=== PATIENT | male | born 1985 | race African-American/Black ===

== ENCOUNTER 2018-10-08 08:43 | Emergency (ER) | payer MEDICAID, SELFPAY ==
[~2018-10-08] VITALS: Ht 175.3 cm; Wt 81.8 kg
[2018-10-08 08:46] VITALS: BP 128/94
--- NOTE | 2018-10-08 09:22 | NUR ---
PT TO XRAY
[2018-10-08] MEDS ORDERED: MAALOX/HYOSCYAMINE/LIDOCAINE 45 ML BTL ONE (09:52)
[2018-10-08] MEDS ORDERED: MAALOX/HYOSCYAMINE/LIDOCAINE 45 ML BTL PO ONE (10:00)
[2018-10-08] MEDS ORDERED: PLEASE ENTER ALLERGIES MC SCH (10:30)
--- NOTE | 2018-10-08 10:38 | NUR ---
PT WAS CLEARED FOR DISCHARGE, LEFT PRIOR TO RECEIVING D/C INSTRUCTIONS.
== END 2018-10-08 10:40 | disposition home or self-care (01) ==
LOC: ED 09:36
DX: K20.9 Esophagitis, unspecified (principal); F17.200 Nicotine dependence, unspecified, uncomplicated; G40.909 Epilepsy, unspecified, not intractable, without status epilepticus
CPT/HCPCS: 74220; 99283

== ENCOUNTER 2018-11-09 09:37 | Emergency (ER) | payer MEDICAID ==
[~2018-11-09] VITALS: Ht 170.2 cm; Wt 81.8 kg
--- NOTE | 2018-11-09 09:51 | NUR ---
report charly carter rn. vss. pt reports 7/10 bilateral lower back pain. orders received.
[2018-11-09] MEDS ORDERED: KETOROLAC 30 MG/1 ML ONE (09:54)
[2018-11-09] MEDS ORDERED: KETOROLAC 30 MG/1 ML IVPush ONE (10:00)
[2018-11-09] MEDS ORDERED: SODIUM CHLORIDE FLUSH 10ML SYR IVF ONE (10:00)
--- NOTE | 2018-11-09 10:06 | NUR ---
iv established. pt medicated per jun. vss. no needs expressed. pt currently trying to provide ua sample.
[2018-11-09 10:32] LABS: BASOPHILS # (AUTO) 0.01 x10^3/uL (0-0.1); BASOPHILS % (AUTO) 0 % (0-1); EOSINOPHILS # (AUTO) 0.06 x10^3/uL (0-0.4); EOSINOPHILS % (AUTO) 1 % (1-7); LYMPHOCYTES # (AUTO) 1.26 x10^3/uL (1-3.4); LYMPHOCYTES % (AUTO) 12 % (22-44); MD NO; MEAN CORPUSCULAR HEMOGLOBIN 31.8 pg (27.5-34.5); MEAN CORPUSCULAR HGB CONC 33.3 g/dL (33.2-36.2); MEAN CORPUSCULAR VOLUME 95.6 fL (81-97); MEAN PLATELET VOLUME 8.4 fL (7.4-10.4); MONOCYTES # (AUTO) 1.01 x10^3/uL (0.2-0.8); MONOCYTES % (AUTO) 10 % (2-9); NEUTROPHILS # (AUTO) 7.88 x10^3/uL (1.8-6.8); NEUTROPHILS % (AUTO) 77 % (42-75); PLATELET COUNT 285 x10^3/uL (130-400); RED BLOOD COUNT 5.67 x10^6/uL (4.38-5.82); RED CELL DISTRIBUTION WIDTH 13.6 % (9.4-14.8)
[2018-11-09 10:33] VITALS: BP 135/95
--- NOTE | 2018-11-09 10:33 | NUR ---
pt resting in room with lights dimmed. vss. pt reports lower back pain decrease to 5/10 after medication administration. ua collected and sent. awaiting results.
[2018-11-09 10:40] LABS: ALANINE AMINOTRANSFERASE 35 U/L (12-78); ALBUMIN 4.4 g/dL (3.4-5.0); ANION GAP 7 mmol/L (5-15); CALCIUM 9.4 mg/dL (8.5-10.1); CHLORIDE 107 mmol/L (98-107); CREATININE 2.05 mg/dL (0.7-1.3)
[2018-11-09 10:43] LABS: ALKALINE PHOSPHATASE 63 U/L (45-117); BILIRUBIN,TOTAL 0.5 mg/dL (0.2-1.0); TOTAL PROTEIN 8.1 g/dL (6.4-8.2)
[2018-11-09 10:48] LABS: MICROSCOPIC AUTO
[2018-11-09 10:50] LABS: CULTURE INDICATED? NO
--- NOTE | 2018-11-09 10:51 | NUR ---
all results back at this time. chart up for recheck.
== END 2018-11-09 11:19 | disposition home or self-care (01) ==
LOC: ED 11:15
DX: M54.5 Low back pain (principal)
CPT/HCPCS: 36415; 74176; 80053; 81001; 83690; 85025; 96374; 99284; J1885

== ENCOUNTER 2019-04-10 08:27 | Emergency (ER) | payer MEDICAID ==
[~2019-04-10] VITALS: Ht 172.7 cm; Wt 78.0 kg
[2019-04-10 08:50] VITALS: BP 160/108
== END 2019-04-10 09:07 | disposition home or self-care (01) ==
LOC: ED 08:57
DX: B02.9 Zoster without complications (principal); F17.200 Nicotine dependence, unspecified, uncomplicated; R05 Cough
CPT/HCPCS: 99283

== ENCOUNTER 2019-04-27 05:22 | Emergency (ER) | payer MEDICAID ==
[~2019-04-27] VITALS: Ht 172.7 cm; Wt 77.2 kg
[2019-04-27 05:24] VITALS: BP 178/110
[2019-04-27] MEDS ORDERED: AZITHROMYCIN 500 MG TABLET ONE (05:45)
[2019-04-27] MEDS ORDERED: LIDOCAINE-MPF 1%, 2ML ONE (05:45)
[2019-04-27] MEDS ORDERED: CEFTRIAXONE 250 MG ONE (05:45)
[2019-04-27] MEDS ORDERED: AZITHROMYCIN 500 MG TABLET PO ONE (06:00)
[2019-04-27] MEDS ORDERED: CEFTRIAXONE 250 MG IM ONE (06:00)
== END 2019-04-27 06:05 | disposition home or self-care (01) ==
LOC: ED 05:30
DX: A56.01 Chlamydial cystitis and urethritis (principal); A54.01 Gonococcal cystitis and urethritis, unspecified; F17.200 Nicotine dependence, unspecified, uncomplicated; G40.909 Epilepsy, unspecified, not intractable, without status epilepticus
CPT/HCPCS: 96372; 99283; J0696; 87491; 87591

== ENCOUNTER 2019-12-24 03:53 | Inpatient (IN) | payer MEDICAID ==
[~2019-12-24] VITALS: Ht 172.7 cm; Wt 84.6 kg
--- NOTE | 2019-12-24 04:02 | NUR ---
Patient BIB ambulance c/o sore throat, cough, fever/chills x2 days. Patient has taken Tylenol PM with no relief. Last dose was prior to midnight. Patient is in NAD. Respirations even and unlabored.
[2019-12-24 04:30] LABS: BASOPHILS # (AUTO) 0.01 x10^3/uL (0-0.1); BASOPHILS % (AUTO) 0 % (0-1); EOSINOPHILS # (AUTO) 0.01 x10^3/uL (0-0.4); EOSINOPHILS % (AUTO) 0 % (1-7); LYMPHOCYTES # (AUTO) 0.79 x10^3/uL (1-3.4); LYMPHOCYTES % (AUTO) 6 % (22-44); MD NO; MEAN CORPUSCULAR HEMOGLOBIN 31.9 pg (27.5-34.5); MEAN CORPUSCULAR VOLUME 96.6 fL (81-97); MEAN PLATELET VOLUME 8.8 fL (7.4-10.4); MONOCYTES # (AUTO) 1.01 x10^3/uL (0.2-0.8); MONOCYTES % (AUTO) 7 % (2-9); NEUTROPHILS # (AUTO) 11.99 x10^3/uL (1.8-6.8); NEUTROPHILS % (AUTO) 87 % (42-75); PLATELET COUNT 219 x10^3/uL (130-400); RED BLOOD COUNT 4.96 x10^6/uL (4.38-5.82); RED CELL DISTRIBUTION WIDTH 13.3 % (9.4-14.8)
[2019-12-24] MEDS ORDERED: SODIUM CHLORIDE 0.9% 1,000ML IVBOLUS ONE ×2 (04:30→06:00)
[2019-12-24] MEDS ORDERED: LORazepam 2 MG/ML, 1ML IVPush ONE (04:30)
[2019-12-24] MEDS ORDERED: LORazepam 2 MG/ML, 1ML ONE (04:35)
[2019-12-24 04:38] LABS: ANION GAP 7 mmol/L (5-15); CALCIUM 8.3 mg/dL (8.5-10.1); CHLORIDE 104 mmol/L (98-107); CREATININE 1.39 mg/dL (0.7-1.3)
[2019-12-24] MEDS ORDERED: ACETAMINOPHEN 500 MG TABLET ONE (05:25)
[2019-12-24] MEDS ORDERED: IBUPROFEN 600 MG TABLET ONE (05:25)
[2019-12-24] MEDS ORDERED: IBUPROFEN 600 MG TABLET PO ONE (05:30)
[2019-12-24] MEDS ORDERED: ACETAMINOPHEN 500 MG TABLET PO ONE (05:30)
[2019-12-24] MEDS ORDERED: CEFTRIAXONE PMX 1GM/50ML 50 ML ONE (06:21)
[2019-12-24] MEDS ORDERED: AZITHROMYCIN 500 MG in SODIUM CHLORIDE 0.9% 250 ML IVPB ONE (06:30)
[2019-12-24] MEDS ORDERED: CEFTRIAXONE PMX 1GM/50ML 50 ML IVPB ONE (06:30)
--- NOTE | 2019-12-24 06:44 | NUR ---
Report to MURRAY Ruiz. Patient care transferred.
[2019-12-24 08:51] VITALS: BP 122/86
[2019-12-24] MEDS ORDERED: SODIUM CHLORIDE 0.9% 1,000 ML IV SCH (09:23)
[2019-12-24] MEDS ORDERED: LABETALOL 5MG/ML, 20ML IVPush PRN (09:30)
[2019-12-24] MEDS ORDERED: SODIUM CHLORIDE 0.9% 500 ML IV ONE (09:30)
[2019-12-24] MEDS ORDERED: ONDANSETRON 2MG/ML, 2ML IVPush PRN (09:30)
[2019-12-24] MEDS ORDERED: hydrALAzine 20 MG/ML, 1ML IVPush PRN (09:30)
[2019-12-24] MEDS ORDERED: PROMETHAZINE 25 MG/ML, 1ML IM PRN (09:30)
[2019-12-24] MEDS: HEPARIN 5,000 UNITS/ML, 1ML SQ SCH ×2 (09:30→16:47)
[2019-12-24 12:06] LABS: TROPONIN I 0.049 ng/mL (0.000-0.045)
[2019-12-24] MEDS ORDERED: LORazepam 2 MG/ML, 1ML IVPush PRN (13:00)
[2019-12-24 13:02] VITALS: BP 131/91
[2019-12-24] MEDS: OXYcodone/APAP 5/325MG TABLET PO PRN ×2 (13:08→20:11)
[2019-12-24] MEDS ORDERED: LORazepam 1MG TABLET PO PRN ×3 (13:30)
[2019-12-24] MEDS ORDERED: LORazepam 2 MG/ML, 1ML IV PRN ×5 (13:30)
[2019-12-24] MEDS: LORazepam 1MG TABLET PO PRN (13:57)
[2019-12-24] MEDS ORDERED: ASPIRIN 81 MG TABLET CHEW PO ONE (14:30)
[2019-12-24 16:34] LABS: TROPONIN I 0.061 ng/mL (0.000-0.045)
[2019-12-24] MEDS: METOPROLOL TARTRATE 25 MG TAB PO SCH (16:53)
[2019-12-24 18:52] VITALS: BP 127/90
[2019-12-24] MEDS ORDERED: MELATONIN 5 MG TABLET PO PRN (19:30)
[2019-12-24] MEDS: ATORVASTATIN 40 MG TABLET PO SCH (20:11)
[2019-12-24] MEDS: THIAMINE 100MG TABLET PO SCH (20:11)
[2019-12-24] MEDS: ACETAMINOPHEN 325 MG TABLET PO PRN (20:27)
[2019-12-24] MEDS ORDERED: FUROSEMIDE 40 MG/4 ML IV ONE (20:30)
[2019-12-24 20:40] LABS: TROPONIN I 0.118 ng/mL (0.000-0.045)
[2019-12-25 01:00] VITALS: BP 112/81
[2019-12-25] MEDS: HEPARIN 5,000 UNITS/ML, 1ML SQ SCH ×3 (01:24→17:22)
[2019-12-25] MEDS: ACETAMINOPHEN 325 MG TABLET PO PRN (02:15)
[2019-12-25] MEDS: LORazepam 1MG TABLET PO PRN (02:59)
[2019-12-25 05:35] LABS: MEAN CORPUSCULAR HEMOGLOBIN 32.1 pg (27.5-34.5); MEAN CORPUSCULAR VOLUME 97.1 fL (81-97); MEAN PLATELET VOLUME 9.3 fL (7.4-10.4); PLATELET COUNT 221 x10^3/uL (130-400)
[2019-12-25 05:44] LABS: CALCIUM 8.6 mg/dL (8.5-10.1); CHLORIDE 107 mmol/L (98-107)
[2019-12-25 05:49] LABS: ALANINE AMINOTRANSFERASE 49 U/L (12-78); ALBUMIN 2.6 g/dL (3.4-5.0); ALKALINE PHOSPHATASE 92 U/L (45-117); ANION GAP 7 mmol/L (5-15); BILIRUBIN,TOTAL 0.5 mg/dL (0.2-1.0); CREATININE 1.08 mg/dL (0.7-1.3); TOTAL PROTEIN 6.8 g/dL (6.4-8.2)
[2019-12-25 06:02] LABS: MD YES
[2019-12-25 06:04] LABS: BAND#(MANUAL) 0.74 x10^3/uL; BANDS%(MANUAL) 6 % (0-7); LYMPH#(MANUAL) 2.11 x10^3/uL (1-3.4); LYMPHS% (MANUAL) 17 % (22-44); MONOS#(MANUAL) 1.86 x10^3/uL (0.3-2.7); MONOS% (MANUAL) 15 % (2-9); SEG#(MANUAL) 7.69 x10^3/uL (1.8-6.8); SEGS% (MANUAL) 62 % (42-75)
[2019-12-25 06:05] LABS: <PLATELET ESTIMATE> ADEQUATE; <PLT MORPHOLOGY> NORMAL PLT MORPH; <RBC MORPHOLOGY> NORMAL
[2019-12-25 06:25] VITALS: BP 118/80
[2019-12-25] MEDS: METOPROLOL TARTRATE 25 MG TAB PO SCH (06:27)
[2019-12-25] MEDS: CEFTRIAXONE PMX 1GM/50ML 50 ML IV SCH (07:45)
[2019-12-25] MEDS: AZITHROMYCIN 500 MG in SODIUM CHLORIDE 0.9% 250 ML IV SCH (08:41)
[2019-12-25] MEDS: FOLIC ACID 1 MG TABLET PO SCH (08:42)
[2019-12-25] MEDS: MULTIVITAMIN 1 TABLET PO SCH (08:42)
[2019-12-25] MEDS: ASPIRIN 81 MG TABLET CHEW PO SCH (08:42)
[2019-12-25] MEDS: THIAMINE 100MG TABLET PO SCH ×2 (08:42→21:21)
[2019-12-25] MEDS ORDERED: CHLORDIAZEPOXIDE 25 MG CAPSULE PO PRN (09:00)
[2019-12-25 12:03] VITALS: BP 116/79
[2019-12-25 15:37] LABS: CHOLESTEROL, TOTAL 128 mg/dL (140-239); TRIGLYCERIDES 126 mg/dL (50-200); VLDL CHOLESTEROL 25 mg/dL (0-25)
[2019-12-25 15:40] LABS: CHOL/HDL RATIO 3.2; HDL CHOL % 31 % (26-37); HDL CHOLESTEROL (DIRECT) 40 mg/dL (40-60); LDL CHOLESTEROL,CALCULATED 63 mg/dL (54-169); LDL/HDL RATIO 1.6 (0.5-3.0); TROPONIN I 0.181 ng/mL (0.000-0.045)
[2019-12-25 16:12] LABS: INTERNATIONAL NORMALIZED RATIO 0.98 (0.93-1.1); PROTHROMBIN TIME 10.1 Seconds (9.6-11.5)
[2019-12-25 17:20] VITALS: BP 138/89
[2019-12-25] MEDS: FUROSEMIDE 20 MG/2 ML IV SCH (17:22)
[2019-12-25] MEDS: CARVEDILOL 3.125 MG TABLET PO SCH (17:22)
[2019-12-25 18:16] LABS: AMPHETAMINE SCREEN, URINE Negative (Negative); CANNABINOID SCREEN, URINE Negative (Negative); COCAINE SCREEN, URINE Negative (Negative); METHADONE SCREEN, URINE Negative (Negative); OPIATE SCREEN, URINE Negative (Negative)
[2019-12-25 18:23] LABS: BARBITURATE SCREEN, URINE Negative (Negative); BENZODIAZEPINE SCREEN, URINE Negative (Negative)
[2019-12-25 19:07] VITALS: BP 125/85
[2019-12-25] MEDS ORDERED: ATORVASTATIN 40 MG TABLET PO SCH (21:00)
[2019-12-25] MEDS: ATORVASTATIN 40 MG TABLET PO SCH (21:21)
[2019-12-26 00:44] VITALS: BP 132/95
[2019-12-26] MEDS: HEPARIN 5,000 UNITS/ML, 1ML SQ SCH ×2 (01:09→09:30)
[2019-12-26] MEDS: LORazepam 0.5MG TABLET PO PRN ×2 (01:49→04:05)
[2019-12-26] MEDS: OXYcodone/APAP 5/325MG TABLET PO PRN (04:05)
[2019-12-26] MEDS: CARVEDILOL 3.125 MG TABLET PO SCH (04:06)
[2019-12-26 05:36] LABS: MEAN CORPUSCULAR HGB CONC 33.1 g/dL (33.2-36.2); MEAN CORPUSCULAR VOLUME 96.6 fL (81-97); MEAN PLATELET VOLUME 8.9 fL (7.4-10.4); PLATELET COUNT 263 x10^3/uL (130-400); RED BLOOD COUNT 4.42 x10^6/uL (4.38-5.82); RED CELL DISTRIBUTION WIDTH 12.5 % (9.4-14.8)
[2019-12-26 05:57] LABS: ALBUMIN 2.6 g/dL (3.4-5.0); ANION GAP 6 mmol/L (5-15); CALCIUM 8.8 mg/dL (8.5-10.1); CHLORIDE 106 mmol/L (98-107)
[2019-12-26 06:00] LABS: ALANINE AMINOTRANSFERASE 58 U/L (12-78); ALKALINE PHOSPHATASE 66 U/L (45-117); BILIRUBIN,TOTAL 0.5 mg/dL (0.2-1.0); CREATININE 1.06 mg/dL (0.7-1.3); TOTAL PROTEIN 6.6 g/dL (6.4-8.2)
[2019-12-26 06:35] LABS: BASOPHILS # (AUTO) 0.03 x10^3/uL (0-0.1); BASOPHILS % (AUTO) 0 % (0-1); EOSINOPHILS # (AUTO) 0.05 x10^3/uL (0-0.4); EOSINOPHILS % (AUTO) 0 % (1-7); LYMPHOCYTES # (AUTO) 2.43 x10^3/uL (1-3.4); LYMPHOCYTES % (AUTO) 20 % (22-44); MD SCAN; MONOCYTES # (AUTO) 2.14 x10^3/uL (0.2-0.8); MONOCYTES % (AUTO) 18 % (2-9); NEUTROPHILS # (AUTO) 7.34 x10^3/uL (1.8-6.8); NEUTROPHILS % (AUTO) 61 % (42-75)
[2019-12-26 07:19] VITALS: BP 129/89
[2019-12-26] MEDS: FUROSEMIDE 20 MG/2 ML IV SCH (07:30)
[2019-12-26] MEDS ORDERED: REGADENOSON 0.4 MG/5 ML SYRINGE ONE (08:10)
[2019-12-26] MEDS: CEFTRIAXONE PMX 1GM/50ML 50 ML IV SCH (08:11)
[2019-12-26] MEDS: THIAMINE 100MG TABLET PO SCH (09:00)
[2019-12-26] MEDS: FOLIC ACID 1 MG TABLET PO SCH (09:00)
[2019-12-26] MEDS: ASPIRIN 81 MG TABLET CHEW PO SCH (09:00)
[2019-12-26] MEDS: MULTIVITAMIN 1 TABLET PO SCH (09:00)
[2019-12-26] MEDS ORDERED: LISINOPRIL 5 MG TABLET PO SCH (09:00)
[2019-12-26] MEDS: AZITHROMYCIN 500 MG in SODIUM CHLORIDE 0.9% 250 ML IV SCH (09:16)
[2019-12-26] MEDS ORDERED: CARVEDILOL 6.25 MG TABLET PO SCH (18:00)
== END 2019-12-26 13:07 | disposition left against medical advice (07) | DRG 720 ==
LOC: ED 05:43 → EDIP 06:32 → 4EST 08:44
PROVIDERS: ADMIT Internal Medicine Infectious Disease; ATTEND Internal Medicine Infectious Disease
DX: A41.9 Sepsis, unspecified organism (principal); F17.200 Nicotine dependence, unspecified, uncomplicated; G40.909 Epilepsy, unspecified, not intractable, without status epilepticus; J18.9 Pneumonia, unspecified organism; R00.0 Tachycardia, unspecified; F41.9 Anxiety disorder, unspecified; F43.10 Post-traumatic stress disorder, unspecified; N17.0 Acute kidney failure with tubular necrosis; E87.1 Hypo-osmolality and hyponatremia; Z20.828 Contact with and (suspected) exposure to other viral communicable diseases; I42.9 Cardiomyopathy, unspecified; I50.21 Acute systolic (congestive) heart failure; I11.0 Hypertensive heart disease with heart failure; I25.5 Ischemic cardiomyopathy; Z53.29 Procedure and treatment not carried out because of patient's decision for other reasons; Z80.1 Family history of malignant neoplasm of trachea, bronchus and lung
CPT/HCPCS: 36415; 71045; 78452; 80048; 80053; 80061; 80307; 82040; 83605; 83880; 84145; 84484; 85025; 85610; 85730; 87040; 87635; 93005; 93017; 93306; 96374; 96375; G0378; J0456; J0696; J1644; J1940; J2405; J2785; A9502; J2060; J7030; J7050

== ENCOUNTER 2020-02-25 07:27 | Emergency (ER) | payer MEDICAID ==
[~2020-02-25] VITALS: Ht 172.7 cm; Wt 81.6 kg
--- NOTE | 2020-02-25 07:45 | NUR ---
PT WEARING HOSPITAL GOWN, HAS IV FROM EMS. PT PLACED ON VITALS MONITORS. WILL CONTINUE TO MONITOR. CALL LIGHT WITHIN REACH.
[2020-02-25] MEDS ORDERED: MORPHINE SULFATE 4 MG/ML, 1ML ONE ×2 (07:52→10:06)
[2020-02-25] MEDS ORDERED: ONDANSETRON 2MG/ML, 2ML ONE (07:52)
[2020-02-25] MEDS: MORPHINE SULFATE 4 MG/ML, 1ML IVPush PRN ×2 (07:57→10:09)
[2020-02-25] MEDS ORDERED: ONDANSETRON 2MG/ML, 2ML IVPush ONE (08:00)
[2020-02-25] MEDS ORDERED: SODIUM CHLORIDE 0.9% 1,000ML IVBOLUS ONE (08:00)
--- NOTE | 2020-02-25 08:00 | NUR ---
ORDERED IV FLUIDS STARTED, PT MEDICATED FOR PAIN. PT INSTRUCTED ON URINE SPECIMEN COLLECTION.
[2020-02-25 08:06] LABS: BASOPHILS % (AUTO) 1 % (0-1); EOSINOPHILS % (AUTO) 1 % (1-7); LYMPHOCYTES % (AUTO) 33 % (22-44); MEAN CORPUSCULAR HGB CONC 32.9 g/dL (33.2-36.2); MEAN PLATELET VOLUME 7.6 fL (7.4-10.4); MONOCYTES % (AUTO) 7 % (2-9); NEUTROPHILS % (AUTO) 57 % (42-75); PLATELET COUNT 308 x10^3/uL (130-400); RED BLOOD COUNT 4.49 x10^6/uL (4.38-5.82); RED CELL DISTRIBUTION WIDTH 14.4 % (9.4-14.8)
[2020-02-25 08:17] LABS: MD NO
[2020-02-25 08:20] LABS: ALANINE AMINOTRANSFERASE 137 U/L (12-78); ALBUMIN 3.2 g/dL (3.4-5.0); ANION GAP 9 mmol/L (5-15); CALCIUM 8.6 mg/dL (8.5-10.1); CHLORIDE 111 mmol/L (98-107); CREATININE 0.85 mg/dL (0.7-1.3)
[2020-02-25 08:22] LABS: ALKALINE PHOSPHATASE 141 U/L (45-117); BILIRUBIN,TOTAL 0.5 mg/dL (0.2-1.0); TOTAL PROTEIN 6.9 g/dL (6.4-8.2)
--- NOTE | 2020-02-25 08:25 | NUR ---
PT ABLE TO PROVIDE URINE SAMPLE. URINE WALKED TO LAB. PT DESATING TO 77% ON RA AFTER PAIN DATE PITTER. PT PLACED ON 3L O2 PER N/C. WILL CONTINUE TO MONITOR.
[2020-02-25 08:34] LABS: MICROSCOPIC AUTO
[2020-02-25] MEDS ORDERED: OMNIPAQUE 350 MG/ML, 100ML BOTTLE ONE (09:14)
--- NOTE | 2020-02-25 10:10 | NUR ---
PT MEDICATED FOR RETURNING ABD PAIN. US AT BEDSIDE AT THIS TIME.
[2020-02-25 12:03] VITALS: BP 139/93
== END 2020-02-25 12:05 | disposition home or self-care (01) ==
LOC: ED 09:22
DX: K43.9 Ventral hernia without obstruction or gangrene (principal); R10.13 Epigastric pain; G40.909 Epilepsy, unspecified, not intractable, without status epilepticus
CPT/HCPCS: 36415; 74177; 76700; 80053; 81001; 83690; 85025; 96361; 96374; 96375; 96376; 99285; J2270; J2405; J7030; Q9967

== ENCOUNTER 2020-02-28 13:20 | Inpatient (IN) | payer MEDICAID ==
[~2020-02-28] VITALS: Ht 165.1 cm; Wt 86.6 kg
[2020-02-28] MEDS ORDERED: SODIUM CHLORIDE FLUSH 10ML SYR IVF ONE (14:00)
[2020-02-28 14:40] LABS: ALBUMIN 3.1 g/dL (3.4-5.0); ANION GAP 5 mmol/L (5-15); CALCIUM 8.6 mg/dL (8.5-10.1); CHLORIDE 107 mmol/L (98-107)
[2020-02-28 14:43] LABS: BASOPHILS % (AUTO) 1 % (0-1); EOSINOPHILS % (AUTO) 1 % (1-7); LYMPHOCYTES % (AUTO) 24 % (22-44); MEAN CORPUSCULAR HEMOGLOBIN 31.8 pg (27.5-34.5); MEAN CORPUSCULAR HGB CONC 32.2 g/dL (33.2-36.2); MEAN PLATELET VOLUME 7.5 fL (7.4-10.4); MONOCYTES % (AUTO) 11 % (2-9); NEUTROPHILS % (AUTO) 63 % (42-75); PLATELET COUNT 328 x10^3/uL (130-400); RED CELL DISTRIBUTION WIDTH 14.4 % (9.4-14.8)
[2020-02-28 14:47] LABS: ALANINE AMINOTRANSFERASE 122 U/L (12-78); ALKALINE PHOSPHATASE 197 U/L (45-117); BILIRUBIN,TOTAL 0.5 mg/dL (0.2-1.0); CREATININE 1.12 mg/dL (0.7-1.3); TOTAL PROTEIN 6.5 g/dL (6.4-8.2); TROPONIN I 0.089 ng/mL (0.000-0.045)
[2020-02-28 14:48] LABS: MD NO
[2020-02-28] MEDS ORDERED: CEFTRIAXONE PMX 1GM/50ML 50 ML ONE (15:15)
[2020-02-28] MEDS ORDERED: ONDANSETRON 2MG/ML, 2ML ONE (15:15)
[2020-02-28] MEDS ORDERED: MORPHINE SULFATE 4 MG/ML, 1ML ONE (15:15)
[2020-02-28] MEDS: MORPHINE SULFATE 4 MG/ML, 1ML IVPush PRN ×2 (15:18→20:45)
[2020-02-28] MEDS ORDERED: ONDANSETRON 2MG/ML, 2ML IVPush ONE (15:30)
[2020-02-28] MEDS ORDERED: AZITHROMYCIN 500 MG in SODIUM CHLORIDE 0.9% 250 ML IVPB ONE (15:30)
[2020-02-28] MEDS ORDERED: CEFTRIAXONE PMX 1GM/50ML 50 ML IVPB ONE (15:30)
[2020-02-28] MEDS ORDERED: SODIUM CHLORIDE FLUSH 10ML SYR IVF PRN (16:00)
[2020-02-28] MEDS ORDERED: ONDANSETRON 2MG/ML, 2ML IVPush PRN (17:00)
[2020-02-28] MEDS ORDERED: ONDANSETRON ODT 4 MG PO PRN (17:00)
[2020-02-28] MEDS ORDERED: ENALAPRILAT 1.25 MG/ML, 2ML IVPush PRN (17:00)
[2020-02-28] MEDS ORDERED: DOCUSATE 100 MG CAPSULE PO PRN (17:00)
--- NOTE | 2020-02-28 17:04 | NUR ---
PT RESTING IN BED. SPO2 DROPS WITH SLEEPING. PLACED ON 2L NC WHILE AT REST. ATB CONTINUE INFUSING. REPORT CALLED TO PRETTY BAKER RN. PT AWAITING TRANSPORT AT THIS TIME, CALL LIGHT IN REACH.
[2020-02-28 17:36] VITALS: BP 126/93
[2020-02-28 17:39] LABS: TROPONIN I 0.094 ng/mL (0.000-0.045)
[2020-02-28] MEDS: ACETAMINOPHEN 325 MG TABLET PO PRN (18:27)
[2020-02-28] MEDS: METOPROLOL TARTRATE 25 MG TAB PO SCH (18:27)
[2020-02-28] MEDS: FUROSEMIDE 20 MG/2 ML IV SCH (18:27)
[2020-02-28 19:19] VITALS: BP 143/87
[2020-02-28] MEDS ORDERED: NITROGLYCERIN 0.4 MG/SPRAY SL PRN (20:30)
[2020-02-28] MEDS ORDERED: MORPHINE SULFATE 4 MG/ML, 1ML IVPush PRN (20:30)
[2020-02-28] MEDS ORDERED: NITROGLYCERIN 0.4 MG BOTTLE (25 TABS) SL PRN (20:30)
[2020-02-28] MEDS: TRAZODONE 50MG TABLET PO PRN (22:58)
[2020-02-29 00:36] VITALS: BP 120/82
[2020-02-29 01:26] LABS: TROPONIN I 0.081 ng/mL (0.000-0.045)
[2020-02-29 05:19] VITALS: BP 113/83
[2020-02-29] MEDS: METOPROLOL TARTRATE 25 MG TAB PO SCH ×2 (05:21→17:02)
[2020-02-29 05:52] LABS: BASOPHILS % (AUTO) 2 % (0-1); EOSINOPHILS % (AUTO) 1 % (1-7); LYMPHOCYTES % (AUTO) 29 % (22-44); MEAN CORPUSCULAR HEMOGLOBIN 31.9 pg (27.5-34.5); MEAN CORPUSCULAR HGB CONC 32.7 g/dL (33.2-36.2); MEAN PLATELET VOLUME 8.1 fL (7.4-10.4); MONOCYTES % (AUTO) 11 % (2-9); NEUTROPHILS % (AUTO) 57 % (42-75); PLATELET COUNT 317 x10^3/uL (130-400); RED BLOOD COUNT 4.36 x10^6/uL (4.38-5.82); RED CELL DISTRIBUTION WIDTH 14.5 % (9.4-14.8)
[2020-02-29 05:59] LABS: ANION GAP 8 mmol/L (5-15); CALCIUM 8.6 mg/dL (8.5-10.1); CHLORIDE 109 mmol/L (98-107)
[2020-02-29 06:10] LABS: MD NO
[2020-02-29] MEDS: LISINOPRIL 5 MG TABLET PO SCH (08:25)
[2020-02-29] MEDS: FUROSEMIDE 20 MG/2 ML IV SCH (08:25)
[2020-02-29] MEDS: ACETAMINOPHEN 325 MG TABLET PO PRN (08:48)
[2020-02-29] MEDS: PANTOPRAZOLE 20MG TABLET PO SCH ×2 (08:48→20:02)
[2020-02-29 08:54] VITALS: BP 112/83
[2020-02-29] MEDS ORDERED: CALCIUM CARBONATE 500 MG TAB.CHEW PO PRN (09:00)
[2020-02-29] MEDS ORDERED: MORPHINE SULFATE 4 MG/ML, 1ML IVPush PRN (09:30)
[2020-02-29] MEDS ORDERED: LACTULOSE 10 GM/15 ML UDC PO SCH (09:30)
[2020-02-29] MEDS: SUCRALFATE 1 GM/10 ML UDC PO SCH ×3 (11:08→20:27)
[2020-02-29 13:14] VITALS: BP 117/82
[2020-02-29] MEDS ORDERED: LACTULOSE 10 GM/15 ML UDC PO PRN (17:00)
[2020-02-29 20:20] VITALS: BP 112/83
[2020-02-29] MEDS: TRAZODONE 50MG TABLET PO PRN (20:27)
[2020-02-29] MEDS ORDERED: GUAIFENESIN 100 MG/5 ML, 5ML UDC PO PRN (23:00)
[2020-02-29] MEDS: OXYcodone IR 5MG TABLET PO PRN (23:27)
[2020-02-29] MEDS: GUAIFENESIN 100 MG/5 ML, 10ML UDC PO PRN (23:27)
[2020-03-01 03:53] VITALS: BP 117/83
[2020-03-01 05:58] LABS: ALBUMIN 2.7 g/dL (3.4-5.0); ANION GAP 5 mmol/L (5-15); CALCIUM 8.7 mg/dL (8.5-10.1); CHLORIDE 109 mmol/L (98-107)
[2020-03-01 06:07] LABS: ALANINE AMINOTRANSFERASE 129 U/L (12-78); ALKALINE PHOSPHATASE 199 U/L (45-117); BILIRUBIN,TOTAL 0.6 mg/dL (0.2-1.0); CREATININE 1.22 mg/dL (0.7-1.3); TOTAL PROTEIN 5.9 g/dL (6.4-8.2)
[2020-03-01 06:45] VITALS: BP 141/100
[2020-03-01] MEDS: METOPROLOL TARTRATE 25 MG TAB PO SCH ×2 (06:46→17:26)
[2020-03-01] MEDS: SUCRALFATE 1 GM/10 ML UDC PO SCH ×4 (06:46→20:54)
[2020-03-01] MEDS: PANTOPRAZOLE 20MG TABLET PO SCH ×2 (09:21→20:54)
[2020-03-01] MEDS: OXYcodone IR 5MG TABLET PO PRN ×3 (09:21→19:35)
[2020-03-01] MEDS: LISINOPRIL 5 MG TABLET PO SCH (09:22)
[2020-03-01] MEDS: GUAIFENESIN 100 MG/5 ML, 10ML UDC PO PRN ×2 (11:48→19:35)
[2020-03-01 12:37] VITALS: BP 121/90
[2020-03-01] MEDS ORDERED: OMNIPAQUE 350 MG/ML, 75ML BOTTLE ONE (16:34)
[2020-03-01 18:36] VITALS: BP 120/80
[2020-03-01] MEDS: TRAZODONE 50MG TABLET PO PRN (20:54)
[2020-03-02 00:14] VITALS: BP 136/86
[2020-03-02 05:47] VITALS: BP 140/92
[2020-03-02] MEDS: METOPROLOL TARTRATE 25 MG TAB PO SCH ×2 (05:48→17:13)
[2020-03-02 06:33] VITALS: BP 136/91
[2020-03-02] MEDS: PANTOPRAZOLE 20MG TABLET PO SCH ×2 (08:41→19:55)
[2020-03-02] MEDS: LISINOPRIL 5 MG TABLET PO SCH (08:41)
[2020-03-02] MEDS: SUCRALFATE 1 GM/10 ML UDC PO SCH ×4 (08:41→20:01)
[2020-03-02] MEDS: GUAIFENESIN 100 MG/5 ML, 10ML UDC PO PRN ×2 (08:47→19:55)
[2020-03-02] MEDS: OXYcodone IR 5MG TABLET PO PRN ×2 (08:47→20:56)
[2020-03-02 11:41] VITALS: BP 135/89
[2020-03-02] MEDS: LIDODERM 5% PATCH TD SCH (11:55)
[2020-03-02 18:30] VITALS: BP 132/80
[2020-03-02] MEDS ORDERED: MORPHINE SULFATE 4 MG/ML, 1ML IVPush ONE (20:00)
[2020-03-02] MEDS: TRAZODONE 50MG TABLET PO PRN (20:01)
[2020-03-03 00:02] VITALS: BP 114/80
[2020-03-03] MEDS: MORPHINE SULFATE 4 MG/ML, 1ML IVPush PRN ×4 (02:05→21:07)
[2020-03-03 05:25] VITALS: BP 138/87
[2020-03-03] MEDS: METOPROLOL TARTRATE 25 MG TAB PO SCH ×2 (05:26→17:41)
[2020-03-03] MEDS: SUCRALFATE 1 GM/10 ML UDC PO SCH ×4 (05:30→21:07)
[2020-03-03 06:45] VITALS: BP 124/90
[2020-03-03] MEDS: LISINOPRIL 5 MG TABLET PO SCH (08:50)
[2020-03-03] MEDS: PANTOPRAZOLE 20MG TABLET PO SCH ×2 (08:50→21:07)
[2020-03-03] MEDS ORDERED: FUROSEMIDE 20 MG TABLET PO SCH (09:00)
[2020-03-03] MEDS: LIDODERM 5% PATCH TD SCH (12:12)
[2020-03-03 12:18] VITALS: BP 128/90
[2020-03-03 18:45] VITALS: BP 126/86
[2020-03-03] MEDS: ACETAMINOPHEN 325 MG TABLET PO PRN (21:07)
[2020-03-03] MEDS: TRAZODONE 50MG TABLET PO PRN (21:07)
[2020-03-04 02:33] VITALS: BP 121/82
[2020-03-04 04:52] VITALS: BP 132/84
[2020-03-04] MEDS: METOPROLOL TARTRATE 25 MG TAB PO SCH (04:54)
[2020-03-04] MEDS: GUAIFENESIN 100 MG/5 ML, 10ML UDC PO PRN (04:54)
[2020-03-04 05:40] LABS: ANION GAP 8 mmol/L (5-15); CALCIUM 8.8 mg/dL (8.5-10.1); CHLORIDE 110 mmol/L (98-107)
[2020-03-04 06:30] VITALS: BP 119/90
== END 2020-03-04 07:16 | disposition left against medical advice (07) | DRG 194 ==
LOC: ED 14:18 → SUATTDRO 16:48 → EDIP 16:51 → 5SO 17:32 → 4EST 02-29 18:16 → 4WST 03-03 20:12
PROVIDERS: ADMIT Hospitalist; ATTEND Internal Medicine
DX: I50.43 Acute on chronic combined systolic (congestive) and diastolic (congestive) heart failure (principal); F17.200 Nicotine dependence, unspecified, uncomplicated; F43.10 Post-traumatic stress disorder, unspecified; J98.11 Atelectasis; K29.80 Duodenitis without bleeding; Z20.828 Contact with and (suspected) exposure to other viral communicable diseases; Z76.5 Malingerer [conscious simulation]; Z87.820 Personal history of traumatic brain injury; Z91.19 Patient's noncompliance with other medical treatment and regimen
CPT/HCPCS: 36415; 71045; 71275; 80048; 80053; 83605; 83615; 83690; 83880; 84484; 85025; 85379; 86140; 87040; 87338; 87635; 93005; 96365; 96375; 99285; G0378; J0456; J0696; J2405; Q9967; J1940; J2270; J7050

== ENCOUNTER 2020-03-07 02:46 | Inpatient (IN) | payer MEDICAID ==
[~2020-03-07] VITALS: Ht 172.7 cm; Wt 81.3 kg
[2020-03-07 03:47] LABS: BASOPHILS % (AUTO) 2 % (0-1); EOSINOPHILS % (AUTO) 2 % (1-7); LYMPHOCYTES % (AUTO) 32 % (22-44); MEAN CORPUSCULAR HEMOGLOBIN 31.9 pg (27.5-34.5); MEAN CORPUSCULAR HGB CONC 32.4 g/dL (33.2-36.2); MONOCYTES % (AUTO) 12 % (2-9); NEUTROPHILS % (AUTO) 53 % (42-75); PLATELET COUNT 388 x10^3/uL (130-400); RED BLOOD COUNT 4.47 x10^6/uL (4.38-5.82); RED CELL DISTRIBUTION WIDTH 14.9 % (9.4-14.8)
[2020-03-07 03:55] LABS: ALBUMIN 3.2 g/dL (3.4-5.0); ANION GAP 9 mmol/L (5-15); CALCIUM 8.5 mg/dL (8.5-10.1); CHLORIDE 110 mmol/L (98-107); CREATININE 1.15 mg/dL (0.7-1.3)
[2020-03-07 03:59] LABS: MD NO; TROPONIN I 0.092 ng/mL (0.000-0.045)
--- NOTE | 2020-03-07 04:40 | NUR ---
A&o x4. Answering questions appropriately. Speaking in clear, full sentences. States he has had increased SOB x1 week. States he left AMA last week d/t personal issues r/t housing. Pt also states same issues for being unable to obtain home meds. Pt states increased SOB/TEJADA with intermittent atraumatic, non-radiating L sided chest pain and dry cough. Denies fever/chills. Denies N/V/D. No s/sx acute respiratory distress. No use of accessory muscles noted. Placed on continuous tele/O2 monitoring. Sinus tach to low 100s noted on monitor. Bed low, side rails up, call hopper within reach
[2020-03-07] MEDS ORDERED: FUROSEMIDE 40 MG/4 ML ONE (04:41)
[2020-03-07] MEDS ORDERED: ASPIRIN 325 MG TABLET ONE (04:41)
[2020-03-07] MEDS ORDERED: ASPIRIN 325 MG TABLET PO ONE (05:00)
[2020-03-07] MEDS ORDERED: FUROSEMIDE 40 MG/4 ML IV ONE (05:00)
--- NOTE | 2020-03-07 05:12 | NUR ---
Ambulated to bathroom independently, steady gait
[2020-03-07] MEDS ORDERED: NITROGLYCERIN 0.4 MG BOTTLE (25 TABS) SL PRN (05:30)
[2020-03-07] MEDS: HEPARIN 5,000 UNITS/ML, 1ML SQ SCH ×3 (05:30→21:38)
[2020-03-07] MEDS ORDERED: DOCUSATE 100 MG CAPSULE PO PRN (05:30)
[2020-03-07] MEDS ORDERED: ONDANSETRON 2MG/ML, 2ML IVPush PRN (05:30)
[2020-03-07] MEDS: ASPIRIN 325 MG TABLET PO SCH (06:00)
[2020-03-07] MEDS ORDERED: HEPARIN 5,000 UNITS/ML, 1ML ONE (06:20)
--- NOTE | 2020-03-07 06:38 | NUR ---
Ambulated to bathroom independently, steady gait
--- NOTE | 2020-03-07 07:33 | NUR ---
RECEIVED BEDSIDE REPORT AND CARE FROM RAF GAO AT THIS TIME. PT RESTING IN POSITION OF COMFORT. DENIES NEED TO USE RESTROOM. PT DESATING PER RAF GAO AND 2L NC O2 WAS APPLIED. PULSE OX 99% ON 2L NC O2. VSS. ST ON MONITOR. DENIES ANY PAIN OR CP AT THIS TIME. STATES SOB "IS ABOUT THE SAME." RESTING COMFORTABLY. DENIES NEED TO USE RESTROOM. AWAITING ROOM ASSIGNMENT ON FLOOR. PT UPDATED ON NPO STATUS, VERBALIZED UNDERSTANDING. CALL LIGHT IN REACH. FALL PRECUATIONS IN PLACE.
[2020-03-07] MEDS ORDERED: POTASSIUM CHLORIDE 20 MEQ TAB.ER.PRT ONE (07:43)
[2020-03-07] MEDS ORDERED: NICOTINE 14MG/24 HR PATCH.TD24 ONE (07:44)
[2020-03-07] MEDS: POTASSIUM CHLORIDE 20 MEQ TAB.ER.PRT PO SCH (08:02)
[2020-03-07] MEDS: NICOTINE 14MG/24 HR PATCH.TD24 TD SCH (08:03)
--- NOTE | 2020-03-07 08:04 | NUR ---
LAB AT BEDSIDE. PT AMBUALTED TO RESTROOM WITH STEADY GAIT. REFUSES URINAL AND BEDSIDE COMMODE. RESTING IN POSITION OF COMFORT. DENIES ANY PAIN, CP. WATCHING TV. UPDATED ON POC. CONT AWAITING ROOM ON FLOOR. VSS. ST ON MONITOR. RESP REGULAR AND UNLABORED. PULSE OX 98% 2L NC OX2. CALL LIGHT IN REACH. FALL PRECUATIONS IN PLACE. PT GIVEN INCENTIVE SPRIROMETER PER MD ORDER, DEMONSTRATED PROPER USE AT 2250ML.
[2020-03-07 08:36] LABS: TROPONIN I 0.078 ng/mL (0.000-0.045)
--- NOTE | 2020-03-07 09:29 | NUR ---
PT RESTING IN POSITION OF COMFORT. CONTINUE AWAITING ROOM ASSIGNMENT ON FLOOR. VSS. ST ON MONITOR. DENIES SOB, CP, PAIN AND NEED TO USE RESTROOM. MOUTH SWABS PROVIDED PER PT COMFORT. CALL LIGHT IN REACH. FALL PRECUATIONS IN PLACE. REMAINS A&OX4.
--- NOTE | 2020-03-07 09:38 | NUR ---
BEDSIDE REPORT AND TRANSFER OF CARE TO LAURA GAO AT THIS TIME.
--- NOTE | 2020-03-07 09:52 | NUR ---
BEDSIDE REPORT RECEIVED FROM MURRAY TRAYLOR FOR TRANSFER OF PATIENT CARE.
--- NOTE | 2020-03-07 10:53 | NUR ---
ATTEMPTED TO CALL REPORT.
--- NOTE | 2020-03-07 11:44 | NUR ---
REPORT CALLED TO MURRAY ARMENTA ON CARDIAC TELEMETRY.
--- NOTE | 2020-03-07 12:10 | NUR ---
PATIENT TRANSFERRED IN STABLE CONDITION VIA GURNEY BY INTERPRETER TO CARDIAC TELEMETRY FLOOR. ALL PATIENT BELONGINGS GATHERED AND TAKEN WITH PATIENT.
[2020-03-07 12:29] VITALS: BP 136/95
[2020-03-07 18:52] VITALS: BP 143/102
[2020-03-07] MEDS: ACETAMINOPHEN 325 MG TABLET PO PRN (23:18)
[2020-03-08 00:22] VITALS: BP 133/98
[2020-03-08] MEDS ORDERED: ZOLPIDEM 5MG TABLET PO PRN (01:30)
[2020-03-08] MEDS: ASPIRIN 325 MG TABLET PO SCH (05:32)
[2020-03-08] MEDS: FUROSEMIDE 40 MG/4 ML IV SCH (05:33)
[2020-03-08] MEDS: HEPARIN 5,000 UNITS/ML, 1ML SQ SCH ×4 (05:33→23:27)
[2020-03-08 07:25] VITALS: BP 111/78
[2020-03-08] MEDS: NICOTINE 14MG/24 HR PATCH.TD24 TD SCH (09:25)
[2020-03-08] MEDS: POTASSIUM CHLORIDE 20 MEQ TAB.ER.PRT PO SCH (09:25)
[2020-03-08 11:25] LABS: BASOPHILS % (AUTO) 1 % (0-1); EOSINOPHILS % (AUTO) 3 % (1-7); LYMPHOCYTES % (AUTO) 23 % (22-44); MEAN CORPUSCULAR HEMOGLOBIN 32.4 pg (27.5-34.5); MEAN CORPUSCULAR HGB CONC 33.2 g/dL (33.2-36.2); MEAN PLATELET VOLUME 7.1 fL (7.4-10.4); MONOCYTES % (AUTO) 10 % (2-9); NEUTROPHILS % (AUTO) 64 % (42-75); PLATELET COUNT 461 x10^3/uL (130-400); RED BLOOD COUNT 5.19 x10^6/uL (4.38-5.82); RED CELL DISTRIBUTION WIDTH 14.7 % (9.4-14.8)
[2020-03-08 11:26] LABS: MD NO
[2020-03-08 11:33] LABS: ANION GAP 5 mmol/L (5-15); CALCIUM 9.2 mg/dL (8.5-10.1); CHLORIDE 107 mmol/L (98-107); CREATININE 1.29 mg/dL (0.7-1.3)
[2020-03-08 12:37] VITALS: BP 138/99
[2020-03-08 20:57] VITALS: BP 148/93
[2020-03-08] MEDS ORDERED: MORPHINE SULFATE 4 MG/ML, 1ML IV ONE (21:00)
[2020-03-08] MEDS ORDERED: ZOLPIDEM 5MG TABLET ONE (21:54)
[2020-03-08] MEDS ORDERED: ZOLPIDEM 5MG TABLET PO ONE (22:00)
[2020-03-09 00:54] VITALS: BP 131/92
[2020-03-09] MEDS: FUROSEMIDE 40 MG/4 ML IV SCH ×2 (05:00→10:05)
[2020-03-09] MEDS: ASPIRIN 325 MG TABLET PO SCH (06:09)
[2020-03-09] MEDS: CARVEDILOL 6.25 MG TABLET PO SCH ×2 (06:09→18:41)
[2020-03-09 06:45] VITALS: BP 124/89
[2020-03-09] MEDS: POTASSIUM CHLORIDE 20 MEQ TAB.ER.PRT PO SCH (10:04)
[2020-03-09] MEDS: LISINOPRIL 10 MG TABLET PO SCH (10:05)
[2020-03-09] MEDS: NICOTINE 14MG/24 HR PATCH.TD24 TD SCH (10:06)
[2020-03-09 12:30] VITALS: BP 119/84
[2020-03-09] MEDS: ACETAMINOPHEN 325 MG TABLET PO PRN ×2 (14:13→21:31)
[2020-03-09] MEDS: HEPARIN 5,000 UNITS/ML, 1ML SQ SCH ×2 (14:14→21:33)
[2020-03-09 19:08] VITALS: BP 115/81
[2020-03-10 00:34] VITALS: BP 120/78
[2020-03-10] MEDS: HEPARIN 5,000 UNITS/ML, 1ML SQ SCH (05:40)
[2020-03-10] MEDS: ASPIRIN 325 MG TABLET PO SCH (05:41)
[2020-03-10] MEDS: CARVEDILOL 6.25 MG TABLET PO SCH ×2 (05:41→17:44)
[2020-03-10 08:15] VITALS: BP 117/82
[2020-03-10] MEDS ORDERED: REGADENOSON 0.4 MG/5 ML SYRINGE ONE (11:37)
[2020-03-10] MEDS: LISINOPRIL 10 MG TABLET PO SCH (12:56)
[2020-03-10] MEDS: FUROSEMIDE 40 MG TABLET PO SCH (12:56)
[2020-03-10] MEDS: SPIRONOLACTONE 25 MG TABLET PO SCH (12:56)
[2020-03-10] MEDS: NICOTINE 14MG/24 HR PATCH.TD24 TD SCH (12:58)
[2020-03-10 14:00] VITALS: BP 118/87
[2020-03-10] MEDS ORDERED: HEPARIN 5,000 UNITS/ML, 1ML IV ONE (15:30)
[2020-03-10] MEDS: HEPARIN 25,000 UNITS/250ML PMX 250 ML IV PRN (17:44)
[2020-03-10] MEDS: ACETAMINOPHEN 325 MG TABLET PO PRN (18:26)
[2020-03-10 20:30] VITALS: BP 99/62
[2020-03-11 03:34] VITALS: BP 91/63
[2020-03-11] MEDS: HEPARIN 5,000 UNITS/ML, 1ML IV PRN (05:01)
[2020-03-11 06:44] VITALS: BP 115/82
[2020-03-11] MEDS: SPIRONOLACTONE 25 MG TABLET PO SCH (08:37)
[2020-03-11] MEDS: POTASSIUM CHLORIDE 20 MEQ TAB.ER.PRT PO SCH (08:37)
[2020-03-11] MEDS: LISINOPRIL 10 MG TABLET PO SCH (08:37)
[2020-03-11] MEDS: FUROSEMIDE 40 MG TABLET PO SCH (08:37)
[2020-03-11] MEDS: NICOTINE 14MG/24 HR PATCH.TD24 TD SCH (08:39)
[2020-03-11] MEDS: ASPIRIN 81 MG TABLET EC PO SCH (08:40)
[2020-03-11] MEDS: CARVEDILOL 6.25 MG TABLET PO SCH ×2 (08:40→17:59)
[2020-03-11 09:49] LABS: ANION GAP 8 mmol/L (5-15); CALCIUM 9.3 mg/dL (8.5-10.1); CHLORIDE 110 mmol/L (98-107); CREATININE 1.26 mg/dL (0.7-1.3)
[2020-03-11 10:23] LABS: INTERNATIONAL NORMALIZED RATIO 1.11 (0.93-1.1); PROTHROMBIN TIME 11.8 Seconds (9.6-11.5)
[2020-03-11 14:19] VITALS: BP 93/63
[2020-03-11] MEDS: HEPARIN 25,000 UNITS/250ML PMX 250 ML IV PRN (17:00)
[2020-03-11] MEDS ORDERED: WARFARIN 5 MG TABLET PO-COUM ONE (18:00)
[2020-03-11 18:47] VITALS: BP 105/71
[2020-03-11] MEDS: GUAIFENESIN/DM 200-20MG, 10ML UDC PO PRN (23:24)
[2020-03-12 01:16] VITALS: BP 107/73
[2020-03-12 05:53] LABS: INTERNATIONAL NORMALIZED RATIO 1.09 (0.93-1.1); PROTHROMBIN TIME 11.5 Seconds (9.6-11.5)
[2020-03-12 06:28] VITALS: BP 111/76
[2020-03-12] MEDS: CARVEDILOL 6.25 MG TABLET PO SCH ×2 (06:49→18:47)
[2020-03-12] MEDS: ASPIRIN 81 MG TABLET EC PO SCH (06:49)
[2020-03-12] MEDS: HEPARIN 5,000 UNITS/ML, 1ML IV PRN ×2 (07:06→19:53)
[2020-03-12 07:53] LABS: ANION GAP 6 mmol/L (5-15); CALCIUM 9.2 mg/dL (8.5-10.1); CHLORIDE 109 mmol/L (98-107); CREATININE 1.26 mg/dL (0.7-1.3)
[2020-03-12] MEDS: FUROSEMIDE 40 MG TABLET PO SCH (09:06)
[2020-03-12] MEDS: POTASSIUM CHLORIDE 20 MEQ TAB.ER.PRT PO SCH (09:06)
[2020-03-12] MEDS: NICOTINE 14MG/24 HR PATCH.TD24 TD SCH (09:06)
[2020-03-12] MEDS: LISINOPRIL 10 MG TABLET PO SCH (09:06)
[2020-03-12] MEDS: SPIRONOLACTONE 25 MG TABLET PO SCH (09:06)
[2020-03-12 12:10] VITALS: BP 107/72
[2020-03-12] MEDS ORDERED: WARFARIN 5 MG TABLET PO-COUM ONE (18:00)
[2020-03-12] MEDS: HEPARIN 25,000 UNITS/250ML PMX 250 ML IV PRN (18:54)
[2020-03-12 19:03] VITALS: BP 116/77
[2020-03-13 02:00] VITALS: BP 116/76
[2020-03-13 05:11] VITALS: BP 113/79
[2020-03-13] MEDS: ASPIRIN 81 MG TABLET EC PO SCH (05:11)
[2020-03-13] MEDS: CARVEDILOL 6.25 MG TABLET PO SCH ×2 (05:11→16:54)
[2020-03-13 07:50] VITALS: BP 109/75
[2020-03-13] MEDS: NICOTINE 14MG/24 HR PATCH.TD24 TD SCH (09:28)
[2020-03-13] MEDS: FUROSEMIDE 40 MG TABLET PO SCH (09:28)
[2020-03-13] MEDS: POTASSIUM CHLORIDE 20 MEQ TAB.ER.PRT PO SCH (09:28)
[2020-03-13] MEDS: SPIRONOLACTONE 25 MG TABLET PO SCH (09:29)
[2020-03-13] MEDS: LISINOPRIL 10 MG TABLET PO SCH (09:29)
[2020-03-13 10:46] LABS: INTERNATIONAL NORMALIZED RATIO 1.2 (0.93-1.1); PROTHROMBIN TIME 12.7 Seconds (9.6-11.5)
[2020-03-13 13:07] VITALS: BP 111/70
[2020-03-13] MEDS: HEPARIN 25,000 UNITS/250ML PMX 250 ML IV PRN (16:53)
[2020-03-13] MEDS ORDERED: WARFARIN 5 MG TABLET PO-COUM ONE (18:00)
[2020-03-13 20:40] VITALS: BP 101/68
[2020-03-13] MEDS: GUAIFENESIN/DM 200-20MG, 10ML UDC PO PRN (21:20)
[2020-03-14 00:53] VITALS: BP 92/61
[2020-03-14] MEDS: ASPIRIN 81 MG TABLET EC PO SCH (05:49)
[2020-03-14] MEDS: CARVEDILOL 6.25 MG TABLET PO SCH (06:23)
[2020-03-14 06:24] VITALS: BP 117/88
[2020-03-14 07:05] LABS: INTERNATIONAL NORMALIZED RATIO 1.38 (0.93-1.1); PROTHROMBIN TIME 14.6 Seconds (9.6-11.5)
[2020-03-14 08:32] VITALS: BP 106/73
[2020-03-14] MEDS: FUROSEMIDE 40 MG TABLET PO SCH (08:36)
[2020-03-14] MEDS: SPIRONOLACTONE 25 MG TABLET PO SCH (08:36)
[2020-03-14] MEDS: POTASSIUM CHLORIDE 20 MEQ TAB.ER.PRT PO SCH (08:36)
[2020-03-14] MEDS: NICOTINE 14MG/24 HR PATCH.TD24 TD SCH (08:37)
[2020-03-14] MEDS: LISINOPRIL 10 MG TABLET PO SCH (08:37)
[2020-03-14] MEDS ORDERED: RIVAROXABAN 20 MG TABLET PO SCH (09:30)
[2020-03-14] MEDS ORDERED: RIVA20TA PO (11:53)
[2020-03-14] MEDS ORDERED: LISI-167 PO (11:53)
[2020-03-14] MEDS ORDERED: POTA20TA6 PO (11:53)
[2020-03-14] MEDS ORDERED: ASPI81TA45 PO (11:53)
[2020-03-14] MEDS ORDERED: SPIR25TA PO (11:53)
[2020-03-14] MEDS ORDERED: FURO40TA6 PO (11:53)
[2020-03-14] MEDS ORDERED: CARV6.2512 PO (11:53)
[2020-03-14 14:36] VITALS: BP 99/69
[2020-03-15] MEDS ORDERED: RIVAROXABAN 20 MG TABLET PO SCH (08:00)
== END 2020-03-14 17:57 | disposition home or self-care (01) | DRG 205 ==
LOC: ED 05:14 → EDIP 05:19 → 5SO 12:09
PROVIDERS: ADMIT Family Medicine; ATTEND Hospitalist
DX: I42.9 Cardiomyopathy, unspecified (principal); I50.23 Acute on chronic systolic (congestive) heart failure; D68.69 Other thrombophilia; F10.20 Alcohol dependence, uncomplicated; F15.10 Other stimulant abuse, uncomplicated; F43.10 Post-traumatic stress disorder, unspecified; G40.909 Epilepsy, unspecified, not intractable, without status epilepticus; M48.54XA Collapsed vertebra, not elsewhere classified, thoracic region, initial encounter for fracture; Z87.820 Personal history of traumatic brain injury; Z82.49 Family history of ischemic heart disease and other diseases of the circulatory system; Z63.8 Other specified problems related to primary support group; Z91.19 Patient's noncompliance with other medical treatment and regimen; Z72.0 Tobacco use; Z71.6 Tobacco abuse counseling
CPT/HCPCS: 36415; 71046; 78452; 80048; 82040; 83880; 84484; 85025; 85520; 85610; 93005; 93017; 93306; 99285; G0378; J1644; J1940; J2405; J2785; A9502; J2270

== ENCOUNTER 2020-03-14 21:06 | Emergency (ER) | payer MEDICAID ==
[~2020-03-14] VITALS: Ht 172.7 cm; Wt 78.2 kg
[~2020-03-14 21:06] MED LIST: ASPI81TA45 PO; CARV6.2512 PO; FURO40TA6 PO; LISI-167 PO; POTA20TA6 PO; RIVA20TA PO; SPIR25TA PO
--- NOTE | 2020-03-14 23:14 | NUR ---
THIS IS A 34Y M THAT COMES IN TONIGHT AFTER BEING DC FROM HOSPITAL THIS AM. PT STS HE WAS TRYING "TO DO SOME NORMAL THINGS AND FELT TIRED AND SORE." PT STS HE GOT SCARED SO HE CAME BACK TO GET THINGS CHECKED OUT. STS HE FEELS BETTER NOW THAT HE IS HERE. NO INTERVENTIONS AT THIS TIME AWAITING FURTHER ORDERS. PT EXPRESSES NO NEEDS. CONNECTED TO MONITORING VSS
--- NOTE | 2020-03-14 23:21 | NUR ---
PT TO XRAY
[2020-03-15 00:16] VITALS: BP 111/65
== END 2020-03-15 00:18 | disposition home or self-care (01) ==
LOC: ED 23:11
DX: R06.00 Dyspnea, unspecified (principal); R07.89 Other chest pain; I25.2 Old myocardial infarction; I50.9 Heart failure, unspecified; R06.02 Shortness of breath; G40.909 Epilepsy, unspecified, not intractable, without status epilepticus; F17.200 Nicotine dependence, unspecified, uncomplicated
CPT/HCPCS: 71046; 93005; 99283

== ENCOUNTER 2020-04-19 08:31 | Emergency (ER) | payer MEDICAID ==
[~2020-04-19] VITALS: Ht 172.7 cm; Wt 80.4 kg
[~2020-04-19 08:31] MED LIST changes: +ASPI-650 PO; +BENZ-17 PO; +NITR0.4T28 SL
[2020-04-19] MEDS ORDERED: ASPIRIN 81 MG TABLET CHEW PO ONE (09:00)
[2020-04-19 09:20] LABS: ALANINE AMINOTRANSFERASE 40 U/L (12-78); ALBUMIN 3.4 g/dL (3.4-5.0); CALCIUM 8.7 mg/dL (8.5-10.1); CREATININE 1.27 mg/dL (0.7-1.3)
[2020-04-19 09:22] LABS: BASOPHILS % (AUTO) 1 % (0-1); EOSINOPHILS % (AUTO) 3 % (1-7); LYMPHOCYTES % (AUTO) 27 % (22-44); MEAN CORPUSCULAR HEMOGLOBIN 31.8 pg (27.5-34.5); MEAN CORPUSCULAR HGB CONC 33.4 g/dL (33.2-36.2); MEAN PLATELET VOLUME 7.9 fL (7.4-10.4); MONOCYTES % (AUTO) 13 % (2-9); NEUTROPHILS % (AUTO) 57 % (42-75); PLATELET COUNT 404 x10^3/uL (130-400); RED BLOOD COUNT 5.07 x10^6/uL (4.38-5.82); RED CELL DISTRIBUTION WIDTH 14.6 % (9.4-14.8)
[2020-04-19 09:25] LABS: ALKALINE PHOSPHATASE 88 U/L (45-117); BILIRUBIN,TOTAL 0.6 mg/dL (0.2-1.0); TOTAL PROTEIN 7.2 g/dL (6.4-8.2); TROPONIN I 0.023 ng/mL (0.000-0.045)
--- NOTE | 2020-04-19 09:26 | NUR ---
MANAGER OF INTERNAL: PT TO ROOM FROM LOBBY
[2020-04-19 09:28] LABS: MD NO
[2020-04-19] MEDS ORDERED: ASPIRIN 81 MG TABLET CHEW ONE (09:29)
[2020-04-19 09:32] LABS: ANION GAP 5 mmol/L (5-15); CHLORIDE 110 mmol/L (98-107)
[2020-04-19 10:34] VITALS: BP 129/88
== END 2020-04-19 10:36 | disposition home or self-care (01) ==
LOC: ED 09:16
DX: R07.89 Other chest pain (principal); R42 Dizziness and giddiness; R06.02 Shortness of breath; Z72.9 Problem related to lifestyle, unspecified; R00.0 Tachycardia, unspecified; I11.0 Hypertensive heart disease with heart failure; I50.9 Heart failure, unspecified; I25.2 Old myocardial infarction
CPT/HCPCS: 36415; 71045; 80053; 83880; 84484; 85025; 93005; 99285

== ENCOUNTER 2020-05-14 10:43 | Emergency (ER) | payer MEDICAID ==
[~2020-05-14] VITALS: Ht 172.7 cm; Wt 88.4 kg
--- NOTE | 2020-05-14 11:08 | NUR ---
THIS IS A 34 YO M W/ C/O SOB W/ EXERTION, BILAT RIB PAIN, NON PRODUCTIVE COUGH, EPIGASTRIC PAIN, LOW BACK PAIN, PAIN W/ DEFECATION, "HEART BEATING HARDER". PT HAD RECENT ADMIT FOR CHF. PT STATES THAT HE TAKES MEDS "TO THE BEST OF MY ABILITY". ADMITS TO MISSING DOSES. PT TACHYCARDIC, OTHER VS WDL. PT ABLE TO CONVERSE IN FULL SENTENCES W/O DIFFICULTY. PT RESTING ON GURNEY W/ CALL LIGHT IN REACH AND SIDE RAILS UPX2. CONNECTED TO ALL MONITORING. AWAITING ED EVAL.
--- NOTE | 2020-05-14 11:30 | NUR ---
DEREK CRUZ AT BEDSIDE
[2020-05-14] MEDS ORDERED: ONDANSETRON 2MG/ML, 2ML ONE (11:53)
[2020-05-14] MEDS ORDERED: MORPHINE SULFATE 4 MG/ML, 1ML ONE (11:53)
--- NOTE | 2020-05-14 11:55 | NUR ---
PIV STARTED, LABS DRAWN. PT TO RAD.
[2020-05-14 11:59] LABS: BASOPHILS % (AUTO) 1 % (0-1); EOSINOPHILS % (AUTO) 2 % (1-7); LYMPHOCYTES % (AUTO) 21 % (22-44); MEAN CORPUSCULAR HEMOGLOBIN 31.9 pg (27.5-34.5); MEAN CORPUSCULAR HGB CONC 33.5 g/dL (33.2-36.2); MEAN PLATELET VOLUME 8.4 fL (7.4-10.4); MONOCYTES % (AUTO) 11 % (2-9); NEUTROPHILS % (AUTO) 65 % (42-75); PLATELET COUNT 201 x10^3/uL (130-400); RED CELL DISTRIBUTION WIDTH 14.7 % (9.4-14.8)
[2020-05-14] MEDS ORDERED: ONDANSETRON 2MG/ML, 2ML IVPush ONE (12:00)
[2020-05-14] MEDS ORDERED: MORPHINE SULFATE 4 MG/ML, 1ML IVPush PRN (12:00)
[2020-05-14] MEDS ORDERED: SODIUM CHLORIDE FLUSH 10ML SYR IVF ONE (12:00)
[2020-05-14] MEDS ORDERED: ASPI-1027 PO (12:05)
[2020-05-14 12:08] LABS: MD NO
[2020-05-14 12:11] LABS: ALANINE AMINOTRANSFERASE 95 U/L (12-78); ALBUMIN 3.3 g/dL (3.4-5.0); ANION GAP 5 mmol/L (5-15); CALCIUM 9.7 mg/dL (8.5-10.1); CHLORIDE 110 mmol/L (98-107)
[2020-05-14 12:15] LABS: ALKALINE PHOSPHATASE 91 U/L (45-117); BILIRUBIN,TOTAL 0.9 mg/dL (0.2-1.0); TOTAL PROTEIN 6.6 g/dL (6.4-8.2); TROPONIN I 0.031 ng/mL (0.000-0.045)
[2020-05-14 12:39] LABS: MICROSCOPIC AUTO
[2020-05-14 12:50] LABS: AMPHETAMINE SCREEN, URINE Negative (Negative); BARBITURATE SCREEN, URINE Negative (Negative); BENZODIAZEPINE SCREEN, URINE Negative (Negative); CANNABINOID SCREEN, URINE Negative (Negative); COCAINE SCREEN, URINE Negative (Negative); METHADONE SCREEN, URINE Negative (Negative); OPIATE SCREEN, URINE Negative (Negative)
--- NOTE | 2020-05-14 13:08 | NUR ---
PT DESAT TO 84% RA WHILE SLEEPING. PT REPORTS "POSSIBLE" HX OF SLEEP APNEA.
[2020-05-14 13:31] VITALS: BP 128/96
--- NOTE | 2020-05-14 13:36 | NUR ---
ALL TESTS RESULTED. PT IS UP FOR RECHECK AT THIS TIME.
--- NOTE | 2020-05-14 13:41 | NUR ---
AT BEDSIDE FOR RECHECK.
--- NOTE | 2020-05-14 14:10 | NUR ---
DEREK CRUZ AWARE PT DESAT WHILE ASLEEP ONLY, AND PTS REPORT THAT THEY HAVE BEEN TOLD IN THE PAST THAT HE HAS SLEEP APNEA. O2 SAT 98% WHEN AWAKE. DEREK CRUZ REPORTS OK TO DC AND FOR PT TO F/U W/ PRIMARY CARE PROVIDER.
--- NOTE | 2020-05-14 14:20 | NUR ---
PT VERBALIZED UNDERSTANDING OF DC INSTRUCTIONS, VERBALIZED UNDERSTANDING OF NEED TO F/U W/ PRIMARY CARE PROVIDER AND IMPORTANCE OF TAKING PRESCRIBED MEDS. PT AMBULATORY W/ A STEADY GAIT TO DC DESK. RESP EVEN AND UNLABORED,
== END 2020-05-14 14:21 | disposition home or self-care (01) ==
LOC: ED 12:39
DX: K43.2 Incisional hernia without obstruction or gangrene (principal); R07.89 Other chest pain; R10.30 Lower abdominal pain, unspecified; I11.0 Hypertensive heart disease with heart failure; I50.9 Heart failure, unspecified; I25.2 Old myocardial infarction
CPT/HCPCS: 36415; 74022; 80053; 80307; 81001; 83690; 83880; 84484; 85025; 93005; 96374; 96375; 99285; J2270; J2405

== ENCOUNTER 2020-05-15 19:53 | Inpatient (IN) | payer MEDICAID ==
[~2020-05-15] VITALS: Ht 172.7 cm; Wt 83.8 kg
[~2020-05-15 19:53] MED LIST changes: +ASPI-1027 PO
--- NOTE | 2020-05-15 20:00 | NUR ---
PT BIB [facility] FROM [place] [id number] (WHERE HE'S CURRENTLY STAYING) FOR C/O ABD PAIN & NAUSEA X3 DAYS. PT STATES HE BELIEVES HIS VENTRAL HERNIA POPPED OUT. PT ALSO REPORTS RECENT ONSET OF COUGH AND SOB. VSS PER EMS. PT ARRIVES TO ED A&OX4. C/O ABD PAIN 01/09. SPO2 NOTED TO DROP TO 88% ON RA MOMENTARILY BUT THEN RETURNED TO 93%. REPORTS HE QUIT METH USE ABOUT 1 MONTH AGO WHEN HE WAS DX WITH CHF.
--- NOTE | 2020-05-15 20:09 | NUR ---
ERP WAS IN TO SEE PT. CXR BEING DONE AT BS.
[2020-05-15] MEDS ORDERED: MORPHINE SULFATE 4 MG/ML, 1ML ONE (20:21)
[2020-05-15] MEDS ORDERED: ONDANSETRON 2MG/ML, 2ML ONE (20:21)
[2020-05-15] MEDS ORDERED: SODIUM CHLORIDE FLUSH 10ML SYR IVF ONE (20:30)
[2020-05-15] MEDS ORDERED: ONDANSETRON 2MG/ML, 2ML IVPush ONE (20:30)
[2020-05-15] MEDS ORDERED: MORPHINE SULFATE 4 MG/ML, 1ML IVPush PRN (20:30)
[2020-05-15 20:33] LABS: BASOPHILS % (AUTO) 1 % (0-1); EOSINOPHILS % (AUTO) 2 % (1-7); LYMPHOCYTES % (AUTO) 30 % (22-44); MD NO; MEAN CORPUSCULAR HEMOGLOBIN 31.6 pg (27.5-34.5); MEAN CORPUSCULAR HGB CONC 33.5 g/dL (33.2-36.2); MEAN PLATELET VOLUME 8.4 fL (7.4-10.4); MONOCYTES % (AUTO) 10 % (2-9); NEUTROPHILS % (AUTO) 58 % (42-75); PLATELET COUNT 228 x10^3/uL (130-400); RED BLOOD COUNT 4.81 x10^6/uL (4.38-5.82); RED CELL DISTRIBUTION WIDTH 14.9 % (9.4-14.8)
[2020-05-15 20:42] LABS: ALBUMIN 3.5 g/dL (3.4-5.0); ANION GAP 6 mmol/L (5-15); CHLORIDE 109 mmol/L (98-107)
--- NOTE | 2020-05-15 20:43 | NUR ---
PT TO CT VIA [facility].
[2020-05-15] MEDS ORDERED: OMNIPAQUE 350 MG/ML, 100ML BOTTLE ONE (20:45)
[2020-05-15 20:49] LABS: ALANINE AMINOTRANSFERASE 115 U/L (12-78); ALKALINE PHOSPHATASE 112 U/L (45-117); BILIRUBIN,TOTAL 0.5 mg/dL (0.2-1.0); TOTAL PROTEIN 7.1 g/dL (6.4-8.2); TROPONIN I 0.051 ng/mL (0.000-0.045)
--- NOTE | 2020-05-15 21:09 | NUR ---
ERP AT FOR RECHECK.
[2020-05-15] MEDS ORDERED: FUROSEMIDE 40 MG/4 ML ONE (21:27)
[2020-05-15] MEDS ORDERED: ASPIRIN 81 MG TABLET CHEW ONE ×2 (21:27→21:29)
[2020-05-15] MEDS ORDERED: ASPIRIN 81 MG TABLET CHEW PO ONE (21:30)
[2020-05-15] MEDS ORDERED: FUROSEMIDE 40 MG/4 ML IV ONE (21:30)
--- NOTE | 2020-05-15 21:44 | NUR ---
Report from Maureen Soria RN.
--- NOTE | 2020-05-15 21:45 | NUR ---
HOSPITALIST WAS IN TO SEE PT. REPORTED TO ROSA GAO.
[2020-05-15] MEDS ORDERED: NITROGLYCERIN SINGLE TAB 0.4 MG SL PRN (22:00)
--- NOTE | 2020-05-15 22:07 | NUR ---
Report to Gloria GAO.
[2020-05-15] MEDS ORDERED: ONDANSETRON 2MG/ML, 2ML IVPush PRN (22:30)
[2020-05-15] MEDS ORDERED: BISACODYL 10 MG SUPP PR PRN (22:30)
[2020-05-15] MEDS ORDERED: LABETALOL 5MG/ML, 20ML IVPush PRN (22:30)
[2020-05-15] MEDS ORDERED: ACETAMINOPHEN 325 MG TABLET PO PRN (22:30)
[2020-05-15] MEDS ORDERED: PROMETHAZINE 25 MG/ML, 1ML IM PRN (22:30)
[2020-05-15] MEDS ORDERED: POLYETHYLENE GLYCOL 17 GM PACKET PO PRN (22:30)
[2020-05-15] MEDS ORDERED: DOCUSATE 100 MG CAPSULE PO PRN (22:30)
[2020-05-15] MEDS ORDERED: OXYcodone IR 5MG TABLET PO PRN (22:30)
[2020-05-15] MEDS ORDERED: ONDANSETRON ODT 4 MG PO PRN (22:30)
[2020-05-15 22:37] VITALS: BP 125/90
[2020-05-16 01:03] VITALS: BP 120/74
[2020-05-16 02:41] LABS: TROPONIN I 0.039 ng/mL (0.000-0.045)
[2020-05-16 06:00] LABS: BASOPHILS % (AUTO) 1 % (0-1); EOSINOPHILS % (AUTO) 3 % (1-7); LYMPHOCYTES % (AUTO) 33 % (22-44); MEAN CORPUSCULAR HEMOGLOBIN 31.9 pg (27.5-34.5); MEAN CORPUSCULAR HGB CONC 33.6 g/dL (33.2-36.2); MEAN PLATELET VOLUME 8.5 fL (7.4-10.4); MONOCYTES % (AUTO) 9 % (2-9); NEUTROPHILS % (AUTO) 55 % (42-75); PLATELET COUNT 223 x10^3/uL (130-400); RED BLOOD COUNT 4.75 x10^6/uL (4.38-5.82); RED CELL DISTRIBUTION WIDTH 14.9 % (9.4-14.8)
[2020-05-16 06:08] LABS: MD NO
[2020-05-16 06:15] LABS: CHLORIDE 104 mmol/L (98-107)
[2020-05-16 06:28] LABS: ALANINE AMINOTRANSFERASE 101 U/L (12-78); ALBUMIN 3.2 g/dL (3.4-5.0); ALKALINE PHOSPHATASE 101 U/L (45-117); ANION GAP 8 mmol/L (5-15); BILIRUBIN,TOTAL 0.5 mg/dL (0.2-1.0); CALCIUM 8.8 mg/dL (8.5-10.1); CHOL/HDL RATIO 4.3; CHOLESTEROL, TOTAL 191 mg/dL (140-239); CREATININE 1.41 mg/dL (0.7-1.3); HDL CHOL % 23 % (26-37); HDL CHOLESTEROL (DIRECT) 44 mg/dL (40-60); LDL CHOLESTEROL,CALCULATED 116 mg/dL (54-169); LDL/HDL RATIO 2.6 (0.5-3.0); TOTAL PROTEIN 6.7 g/dL (6.4-8.2); TRIGLYCERIDES 155 mg/dL (50-200); TROPONIN I 0.031 ng/mL (0.000-0.045); VLDL CHOLESTEROL 31 mg/dL (0-25)
[2020-05-16] MEDS: CARVEDILOL 6.25 MG TABLET PO SCH ×2 (06:32→18:28)
[2020-05-16] MEDS: FUROSEMIDE 20 MG/2 ML IV SCH ×2 (06:32→18:28)
[2020-05-16 06:33] VITALS: BP 110/78
[2020-05-16 08:56] VITALS: BP 101/70
[2020-05-16] MEDS: ASPIRIN 81 MG TABLET EC PO SCH (09:49)
[2020-05-16] MEDS: SPIRONOLACTONE 25 MG TABLET PO SCH (09:49)
[2020-05-16] MEDS: LISINOPRIL 10 MG TABLET PO SCH (09:49)
[2020-05-16] MEDS: RIVAROXABAN 20 MG TABLET PO SCH (09:49)
[2020-05-16] MEDS: POTASSIUM CHLORIDE 20 MEQ TAB.ER.PRT PO SCH (09:49)
[2020-05-16 15:53] VITALS: BP 95/68
[2020-05-16 19:54] VITALS: BP 111/65
[2020-05-16] MEDS ORDERED: GUAIFENESIN/DM 200-20MG, 10ML UDC PO PRN (23:30)
[2020-05-17 01:09] VITALS: BP 118/70
[2020-05-17] MEDS: RIVAROXABAN 20 MG TABLET PO SCH (05:01)
[2020-05-17] MEDS: CARVEDILOL 6.25 MG TABLET PO SCH ×2 (05:01→17:07)
[2020-05-17 05:29] LABS: BASOPHILS % (AUTO) 1 % (0-1); EOSINOPHILS % (AUTO) 2 % (1-7); LYMPHOCYTES % (AUTO) 29 % (22-44); MEAN CORPUSCULAR HEMOGLOBIN 32.1 pg (27.5-34.5); MEAN CORPUSCULAR HGB CONC 33.7 g/dL (33.2-36.2); MEAN PLATELET VOLUME 8.7 fL (7.4-10.4); MONOCYTES % (AUTO) 12 % (2-9); NEUTROPHILS % (AUTO) 56 % (42-75); PLATELET COUNT 292 x10^3/uL (130-400); RED BLOOD COUNT 5.16 x10^6/uL (4.38-5.82); RED CELL DISTRIBUTION WIDTH 14.7 % (9.4-14.8)
[2020-05-17 05:30] LABS: MD NO
[2020-05-17 05:38] LABS: ANION GAP 5 mmol/L (5-15); CHLORIDE 106 mmol/L (98-107)
[2020-05-17 05:41] LABS: CREATININE 1.29 mg/dL (0.7-1.3)
[2020-05-17 07:05] VITALS: BP 107/78
[2020-05-17] MEDS: ASPIRIN 81 MG TABLET EC PO SCH (08:38)
[2020-05-17] MEDS: POTASSIUM CHLORIDE 20 MEQ TAB.ER.PRT PO SCH (08:38)
[2020-05-17] MEDS: FUROSEMIDE 20 MG/2 ML IV SCH ×2 (08:38→17:07)
[2020-05-17] MEDS: SPIRONOLACTONE 25 MG TABLET PO SCH (08:38)
[2020-05-17] MEDS: LISINOPRIL 10 MG TABLET PO SCH (08:38)
[2020-05-17 13:09] VITALS: BP 101/69
[2020-05-17 19:26] VITALS: BP 100/70
[2020-05-18 01:01] VITALS: BP 116/66
[2020-05-18] MEDS: RIVAROXABAN 20 MG TABLET PO SCH (05:17)
[2020-05-18] MEDS: CARVEDILOL 6.25 MG TABLET PO SCH ×2 (05:23→16:55)
[2020-05-18 06:29] LABS: CHLORIDE 107 mmol/L (98-107)
[2020-05-18 06:33] LABS: ANION GAP 4 mmol/L (5-15); CALCIUM 9.2 mg/dL (8.5-10.1); CREATININE 1.29 mg/dL (0.7-1.3)
[2020-05-18 07:28] VITALS: BP 109/77
[2020-05-18] MEDS: FUROSEMIDE 20 MG/2 ML IV SCH ×4 (10:18→20:08)
[2020-05-18] MEDS: POTASSIUM CHLORIDE 20 MEQ TAB.ER.PRT PO SCH (10:18)
[2020-05-18] MEDS: LISINOPRIL 10 MG TABLET PO SCH (10:19)
[2020-05-18] MEDS: ASPIRIN 81 MG TABLET EC PO SCH (10:19)
[2020-05-18] MEDS: SPIRONOLACTONE 25 MG TABLET PO SCH (10:21)
[2020-05-18 13:47] VITALS: BP 104/72
[2020-05-18 18:56] VITALS: BP 92/61
[2020-05-18] MEDS ORDERED: TEMAZEPAM 15 MG CAPSULE PO PRN (19:30)
[2020-05-19] VITALS (7 sets, daily range): BP systolic 94–111; BP diastolic 64–78
[2020-05-19] MEDS: RIVAROXABAN 20 MG TABLET PO SCH (05:26)
[2020-05-19] MEDS: CARVEDILOL 6.25 MG TABLET PO SCH ×2 (05:26→17:25)
[2020-05-19 05:31] LABS: ANION GAP 4 mmol/L (5-15); CALCIUM 9.5 mg/dL (8.5-10.1); CHLORIDE 102 mmol/L (98-107)
[2020-05-19 05:38] LABS: CREATININE 1.53 mg/dL (0.7-1.3)
[2020-05-19] MEDS: POTASSIUM CHLORIDE 20 MEQ TAB.ER.PRT PO SCH (08:50)
[2020-05-19] MEDS: ASPIRIN 81 MG TABLET EC PO SCH (08:50)
[2020-05-19] MEDS: LISINOPRIL 10 MG TABLET PO SCH (08:50)
[2020-05-19] MEDS: FUROSEMIDE 20 MG/2 ML IV SCH ×2 (08:50→16:27)
[2020-05-19] MEDS ORDERED: ASPI-1027 PO (08:53)
[2020-05-19] MEDS ORDERED: FURO40TA6 PO (08:53)
[2020-05-19] MEDS ORDERED: LISI-167 PO (08:53)
[2020-05-19] MEDS ORDERED: CARV6.2512 PO (08:53)
[2020-05-19] MEDS ORDERED: RIVA20TA PO (08:53)
[2020-05-19] MEDS ORDERED: SPIR25TA PO (08:53)
[2020-05-19] MEDS: SPIRONOLACTONE 25 MG TABLET PO SCH (09:54)
== END 2020-05-19 18:05 | disposition home or self-care (01) | DRG 194 ==
LOC: ED 20:55 → EDIP 21:19 → 5SO 22:27
PROVIDERS: ADMIT Internal Medicine; ATTEND Internal Medicine
DX: I11.0 Hypertensive heart disease with heart failure (principal); N17.0 Acute kidney failure with tubular necrosis; I21.A1 Myocardial infarction type 2; G40.909 Epilepsy, unspecified, not intractable, without status epilepticus; F43.10 Post-traumatic stress disorder, unspecified; F17.200 Nicotine dependence, unspecified, uncomplicated; F15.90 Other stimulant use, unspecified, uncomplicated; F10.10 Alcohol abuse, uncomplicated; I34.0 Nonrheumatic mitral (valve) insufficiency; I42.6 Alcoholic cardiomyopathy; I42.8 Other cardiomyopathies; I50.23 Acute on chronic systolic (congestive) heart failure; J96.01 Acute respiratory failure with hypoxia; K76.9 Liver disease, unspecified; Z59.0 Homelessness; Z79.82 Long term (current) use of aspirin; Z79.899 Other long term (current) drug therapy; Z87.820 Personal history of traumatic brain injury; Z91.19 Patient's noncompliance with other medical treatment and regimen
CPT/HCPCS: 36415; 71045; 71046; 74177; 80048; 80053; 80061; 83605; 83735; 83880; 84100; 84443; 84484; 85025; 93005; 96374; 96375; 99285; G0378; J1940; J2405; Q9967; J2270

== ENCOUNTER 2020-05-29 06:48 | Emergency (ER) | payer MEDICAID ==
[~2020-05-29] VITALS: Ht 172.7 cm; Wt 78.3 kg
[2020-05-29 06:52] VITALS: BP 130/86
--- NOTE | 2020-05-29 07:55 | NUR ---
CALLED [facility] AT , FOR PATIENT TO RETURN [facility] BACK TO [facility]. ZOLL REP TO SEND WET POUR SUPERVISOR TO PICK IT UP IN THE ED.
--- NOTE | 2020-05-29 08:02 | NUR ---
Patient given discharge instructions and they have confirmed that they understand the instructions. Patient ambulatory with steady gait.
--- NOTE | 2020-05-29 08:05 | NUR ---
LOCAL ZOLL REP, FRANKLIN, CALLED AND WILL ELEMENTARY SCHOOL MUSIC TEACHER THE ZOLL LIFEVEST THIS AFTERNOON. I TOLD HER THAT IT IS AT THE CHARGE DESK.
== END 2020-05-29 08:03 | disposition home or self-care (01) ==
LOC: ED 07:08
DX: I11.0 Hypertensive heart disease with heart failure (principal); I50.32 Chronic diastolic (congestive) heart failure; F41.9 Anxiety disorder, unspecified; F17.200 Nicotine dependence, unspecified, uncomplicated; Z59.0 Homelessness
CPT/HCPCS: 99281

== ENCOUNTER 2020-06-07 08:58 | Emergency (ER) | payer MEDICAID ==
[~2020-06-07] VITALS: Ht 172.7 cm; Wt 80.4 kg
[~2020-06-07 08:58] MED LIST changes: -ASPI-650 PO; +ASPI325T20 PO
[2020-06-07] MEDS ORDERED: SODIUM CHLORIDE FLUSH 10ML SYR IVF ONE (10:00)
[2020-06-07 10:48] LABS: ALANINE AMINOTRANSFERASE 50 U/L (12-78); ALBUMIN 3.5 g/dL (3.4-5.0); ANION GAP 6 mmol/L (5-15); BASOPHILS % (AUTO) 1 % (0-1); CALCIUM 9.1 mg/dL (8.5-10.1); CHLORIDE 109 mmol/L (98-107); CREATININE 1.07 mg/dL (0.7-1.3); EOSINOPHILS % (AUTO) 1 % (1-7); LYMPHOCYTES % (AUTO) 19 % (22-44); MEAN CORPUSCULAR HEMOGLOBIN 31.7 pg (27.5-34.5); MEAN CORPUSCULAR HGB CONC 33.4 g/dL (33.2-36.2); MEAN PLATELET VOLUME 8.8 fL (7.4-10.4); MONOCYTES % (AUTO) 9 % (2-9); NEUTROPHILS % (AUTO) 69 % (42-75); PLATELET COUNT 265 x10^3/uL (130-400); RED CELL DISTRIBUTION WIDTH 15.2 % (9.4-14.8)
[2020-06-07 10:53] LABS: ALKALINE PHOSPHATASE 80 U/L (45-117); BILIRUBIN,TOTAL 0.5 mg/dL (0.2-1.0); TOTAL PROTEIN 7.1 g/dL (6.4-8.2); TROPONIN I 0.026 ng/mL (0.000-0.045)
[2020-06-07 10:55] LABS: MD NO
[2020-06-07 12:06] VITALS: BP 136/89
--- NOTE | 2020-06-07 12:52 | NUR ---
PT REC'VD DISCHARGE INSTRUCTIONS AND EDUCATION. PT HAD NO FURTHER QUESTIONS. PT AMBULATED TO DC AREA, STEADY GAIT.
== END 2020-06-07 12:55 | disposition home or self-care (01) ==
LOC: ED 10:00
DX: R06.00 Dyspnea, unspecified (principal); I42.7 Cardiomyopathy due to drug and external agent; I11.0 Hypertensive heart disease with heart failure; I50.9 Heart failure, unspecified; R00.0 Tachycardia, unspecified; I25.2 Old myocardial infarction; F17.200 Nicotine dependence, unspecified, uncomplicated
CPT/HCPCS: 36415; 71045; 80053; 80320; 83690; 83880; 84484; 85025; 93005; 99285; G0480

== ENCOUNTER 2020-06-15 14:04 | Emergency (ER) | payer MEDICAID ==
[~2020-06-15] VITALS: Ht 172.7 cm; Wt 78.4 kg
[2020-06-15] MEDS ORDERED: DIPHENHYDRAMINE 25 MG CAPSULE PO ONE (14:30)
[2020-06-15] MEDS ORDERED: PROMETHAZINE 25 MG/ML, 1ML IM ONE (14:30)
[2020-06-15] MEDS ORDERED: KETOROLAC 30 MG/1 ML IM ONE (14:30)
--- NOTE | 2020-06-15 14:30 | NUR ---
ERMD AT BEDSIDE FOR EVALUATION
--- NOTE | 2020-06-15 14:43 | NUR ---
PT TO CT
[2020-06-15] MEDS ORDERED: KETOROLAC 60 MG/2 ML ONE (14:48)
[2020-06-15] MEDS ORDERED: DIPHENHYDRAMINE 25 MG CAPSULE ONE (14:48)
[2020-06-15] MEDS ORDERED: PROMETHAZINE 25 MG/ML, 1ML ONE (14:49)
--- NOTE | 2020-06-15 15:42 | NUR ---
REPORT TO MYRA
[2020-06-15 15:52] VITALS: BP 127/83
--- NOTE | 2020-06-15 16:03 | NUR ---
PT A&O X4. PT IS ABLE TO GET SELF DRESSED AND SAFELY AMBULATE AROUND ROOM AND ART. PT OFFERED HYDRATION/WATER PT REFUSED. PT GIVEN A BUS PASS. VS STABLE NO ACUTE DISTRESS. PT READY FOR DC. PT DISCHARGED.
== END 2020-06-15 16:05 | disposition home or self-care (01) ==
LOC: ED 15:21
DX: R51.9 Headache, unspecified (principal); F17.210 Nicotine dependence, cigarettes, uncomplicated; I11.0 Hypertensive heart disease with heart failure; I50.9 Heart failure, unspecified; I25.2 Old myocardial infarction
CPT/HCPCS: 70450; 96372; 99284; 99406; J1885; J2550; Q0163

== ENCOUNTER 2020-06-19 01:25 | Emergency (ER) | payer MEDICAID ==
[~2020-06-19] VITALS: Ht 172.7 cm; Wt 78.9 kg
[2020-06-19 02:14] LABS: BASOPHILS % (AUTO) 1 % (0-1); EOSINOPHILS % (AUTO) 2 % (1-7); LYMPHOCYTES % (AUTO) 23 % (22-44); MD NO; MEAN CORPUSCULAR HEMOGLOBIN 31.6 pg (27.5-34.5); MEAN CORPUSCULAR HGB CONC 33.3 g/dL (33.2-36.2); MEAN PLATELET VOLUME 8.1 fL (7.4-10.4); MONOCYTES % (AUTO) 8 % (2-9); NEUTROPHILS % (AUTO) 66 % (42-75); PLATELET COUNT 255 x10^3/uL (130-400); RED BLOOD COUNT 5.09 x10^6/uL (4.38-5.82); RED CELL DISTRIBUTION WIDTH 14.8 % (9.4-14.8)
[2020-06-19 02:18] LABS: ALBUMIN 3.6 g/dL (3.4-5.0); ANION GAP 9 mmol/L (5-15); CALCIUM 8.8 mg/dL (8.5-10.1); CHLORIDE 108 mmol/L (98-107); CREATININE 1.06 mg/dL (0.7-1.3)
[2020-06-19 02:22] LABS: TROPONIN I 0.041 ng/mL (0.000-0.045)
--- NOTE | 2020-06-19 03:06 | NUR ---
US in room. Pt with no changes. Calm in room.
[2020-06-19 04:21] VITALS: BP 130/84
--- NOTE | 2020-06-19 04:23 | NUR ---
Pt DC'd with written and verbal instructions. Rx reviewed. pt states he understands. Pt given taxi voucher. Pt ambulatory out of Ed without difficulty. Vitals stable. Pt A&O and in no distress.
== END 2020-06-19 04:26 | disposition home or self-care (01) ==
LOC: ED 03:54
DX: M79.605 Pain in left leg (principal); R06.00 Dyspnea, unspecified; I42.9 Cardiomyopathy, unspecified; Z76.0 Encounter for issue of repeat prescription; I11.0 Hypertensive heart disease with heart failure; I50.9 Heart failure, unspecified; I48.91 Unspecified atrial fibrillation; R94.31 Abnormal electrocardiogram [ECG] [EKG]; I25.2 Old myocardial infarction; Z59.0 Homelessness; F17.210 Nicotine dependence, cigarettes, uncomplicated
CPT/HCPCS: 36415; 71045; 80048; 82040; 83880; 84484; 85025; 93005; 99285; 99406

== ENCOUNTER 2020-07-03 16:38 | Emergency (ER) | payer MEDICAID ==
[~2020-07-03] VITALS: Ht 172.7 cm; Wt 77.9 kg
--- NOTE | 2020-07-03 17:41 | NUR ---
PT STATES HIS HEAD HAS BEEN HURTING ALL DAY. PT PAIN /. PT STATES HE SOEMTIMES HAS SEIZURES WHEN HE GETS HEADACHES. SEIZURE PADS IN PLACE, RAILS UP. PT ALSO STATES SOMEONE HAS STOLEN HIS MEDS AND HE IS OUT OF HIS HEART MEDS. PT DENIES SOB, CP, OR N/V. 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 PT SPEECH CLEAR, EXT'S STRONG AND EQUAL, FACE SYMETRICAL.
[2020-07-03 18:30] LABS: BASOPHILS % (AUTO) 1 % (0-1); EOSINOPHILS % (AUTO) 2 % (1-7); LYMPHOCYTES % (AUTO) 45 % (22-44); MEAN CORPUSCULAR HEMOGLOBIN 31.1 pg (27.5-34.5); MEAN CORPUSCULAR HGB CONC 32.9 g/dL (33.2-36.2); MONOCYTES % (AUTO) 9 % (2-9); NEUTROPHILS % (AUTO) 44 % (42-75); PLATELET COUNT 299 x10^3/uL (130-400); RED BLOOD COUNT 5.19 x10^6/uL (4.38-5.82); RED CELL DISTRIBUTION WIDTH 15.6 % (9.4-14.8)
[2020-07-03 18:32] LABS: ALBUMIN 3.8 g/dL (3.4-5.0); ANION GAP 9 mmol/L (5-15); CALCIUM 8.4 mg/dL (8.5-10.1); CHLORIDE 112 mmol/L (98-107); CREATININE 0.92 mg/dL (0.7-1.3)
[2020-07-03 18:35] LABS: MD NO
--- NOTE | 2020-07-03 19:01 | NUR ---
bedside report from Mariana RN, pt care transferred at this time. pt nad, resting on gurney, seizure precautions in place, bed in lowest, rails engaged, call light on lap, wctm. waiting for imaging results and labs.
--- NOTE | 2020-07-03 19:53 | NUR ---
Patient given discharge instructions and they have confirmed that they understand the instructions. Patient ambulatory with steady gait. NAD, DENIES ADDITIONAL QUESTIONS OR NEEDS AT THIS TIME. NO PEROSNAL BELONGINGS LEFT IN ROOM AFTER DC.
[2020-07-03 19:54] VITALS: BP 113/74
== END 2020-07-03 19:56 | disposition home or self-care (01) ==
LOC: ED 19:20
DX: G44.319 Acute post-traumatic headache, not intractable (principal); F10.120 Alcohol abuse with intoxication, uncomplicated; R00.0 Tachycardia, unspecified; R94.31 Abnormal electrocardiogram [ECG] [EKG]; R41.0 Disorientation, unspecified; I11.0 Hypertensive heart disease with heart failure; I50.9 Heart failure, unspecified; I25.2 Old myocardial infarction; Y90.9 Presence of alcohol in blood, level not specified
CPT/HCPCS: 36415; 70450; 71045; 80048; 80320; 82040; 85025; 93005; 99285; G0480

== ENCOUNTER 2020-07-15 15:52 | Inpatient (IN) | payer MEDICAID ==
[~2020-07-15] VITALS: Ht 172.7 cm; Wt 79.2 kg
--- NOTE | 2020-07-15 16:01 | NUR ---
SIMENTAL, CP, SHORTNESS OF BREATH, LOWER ABD PAIN WITH WALKING X4 DAY; SPITTING UP BLOOD X2 DAYS, MEDS WERE STOLEN. HX OF CHF, EPILEPSY, ANXIETY, BLOOD CLOT ON MY VALVE
--- NOTE | 2020-07-15 16:13 | NUR ---
Hx chronic heart failure. Cant sleep, hurts to sleep, hurts to walk, sinuses and nose on right side hurt to breath in, coughing up blood x2 days. Pt reports he has felt chills/fever. Denies vomitting.
[2020-07-15] MEDS ORDERED: SODIUM CHLORIDE FLUSH 10ML SYR IVF ONE (18:00)
[2020-07-15] MEDS ORDERED: BENZONATATE 100 MG CAPSULE PO ONE (18:00)
[2020-07-15] MEDS ORDERED: BENZONATATE 100 MG CAPSULE ONE (18:04)
[2020-07-15 18:16] LABS: BASOPHILS % (AUTO) 1 % (0-1); EOSINOPHILS % (AUTO) 3 % (1-7); LYMPHOCYTES % (AUTO) 26 % (22-44); MEAN CORPUSCULAR HEMOGLOBIN 31.6 pg (27.5-34.5); MEAN CORPUSCULAR HGB CONC 33.2 g/dL (33.2-36.2); MEAN PLATELET VOLUME 8.4 fL (7.4-10.4); MONOCYTES % (AUTO) 9 % (2-9); NEUTROPHILS % (AUTO) 61 % (42-75); PLATELET COUNT 243 x10^3/uL (130-400); RED BLOOD COUNT 4.69 x10^6/uL (4.38-5.82); RED CELL DISTRIBUTION WIDTH 15.7 % (9.4-14.8)
[2020-07-15 18:17] LABS: MD NO
[2020-07-15 18:18] LABS: ALBUMIN 3.1 g/dL (3.4-5.0); ANION GAP 6 mmol/L (5-15); CALCIUM 8.1 mg/dL (8.5-10.1); CHLORIDE 110 mmol/L (98-107)
--- NOTE | 2020-07-15 18:19 | NUR ---
IV started, medicated per eMAR. XR at bedside. Labs have been drawn.
[2020-07-15 18:29] LABS: ALANINE AMINOTRANSFERASE 57 U/L (12-78); ALKALINE PHOSPHATASE 78 U/L (45-117); BILIRUBIN,TOTAL 0.5 mg/dL (0.2-1.0); CREATININE 1.17 mg/dL (0.7-1.3); TOTAL PROTEIN 6.6 g/dL (6.4-8.2); TROPONIN I 0.036 ng/mL (0.000-0.045)
[2020-07-15] MEDS ORDERED: CEFTRIAXONE PMX 1GM/50ML 0 ML ONE (18:30)
[2020-07-15] MEDS ORDERED: CEFTRIAXONE PMX 1GM/50ML 50 ML IVPB ONE (18:30)
[2020-07-15] MEDS ORDERED: CEFTRIAXONE PMX 1GM/50ML 50 ML ONE (18:31)
--- NOTE | 2020-07-15 18:35 | NUR ---
Blood cultures have been drawn. Rocephin started per eMAR.
[2020-07-15] MEDS ORDERED: SODIUM CHLORIDE 0.9% 1,000ML IVBOLUS ONE (19:30)
--- NOTE | 2020-07-15 20:09 | NUR ---
Report called to MURRAY Frank.
[2020-07-15 20:51] VITALS: BP 142/95
[2020-07-15] MEDS ORDERED: MELATONIN 5 MG TABLET PO PRN (21:00)
[2020-07-15] MEDS ORDERED: LABETALOL 5MG/ML, 20ML IV PRN (21:00)
[2020-07-15] MEDS ORDERED: LORazepam 2 MG/ML, 1ML IV PRN ×5 (21:00)
[2020-07-15] MEDS ORDERED: ALUMINUM/MAG/SIMETHICONE 30 ML UDC PO PRN (21:00)
[2020-07-15] MEDS ORDERED: CEFTRIAXONE PMX 1GM/50ML 50 ML IV ONE (21:00)
[2020-07-15] MEDS ORDERED: HEPARIN 5,000 UNITS/ML, 1ML SQ SCH (21:00)
[2020-07-15] MEDS ORDERED: DOCUSATE 100 MG CAPSULE PO PRN (21:00)
[2020-07-15] MEDS ORDERED: MAGNESIUM SULFATE PMX 2GM/50ML 50 ML IV ONE (21:00)
[2020-07-15] MEDS ORDERED: LIDODERM 5% PATCH TD PRN (21:00)
[2020-07-15] MEDS: NICOTINE 14MG/24 HR PATCH.TD24 TD SCH (22:10)
[2020-07-15] MEDS: DOXYCYCLINE 100 MG in DEXTROSE 5% 250 ML IV SCH (22:43)
[2020-07-16 01:15] LABS: TROPONIN I 0.032 ng/mL (0.000-0.045)
[2020-07-16 01:30] VITALS: BP 136/100
[2020-07-16 02:02] VITALS: BP 134/99
[2020-07-16 06:00] LABS: BASOPHILS % (AUTO) 1 % (0-1); EOSINOPHILS % (AUTO) 2 % (1-7); LYMPHOCYTES % (AUTO) 24 % (22-44); MEAN CORPUSCULAR HGB CONC 33.3 g/dL (33.2-36.2); MEAN PLATELET VOLUME 8.6 fL (7.4-10.4); MONOCYTES % (AUTO) 10 % (2-9); NEUTROPHILS % (AUTO) 64 % (42-75); PLATELET COUNT 258 x10^3/uL (130-400); RED CELL DISTRIBUTION WIDTH 15.6 % (9.4-14.8)
[2020-07-16 06:02] LABS: MD NO
[2020-07-16 06:03] LABS: HCT (SEDRATE) 47.1 % (39.2-51.8)
[2020-07-16 06:12] LABS: CHLORIDE 110 mmol/L (98-107)
[2020-07-16 06:13] LABS: D-DIMER 0.87 ug/mlFEU (0.00-0.52); INTERNATIONAL NORMALIZED RATIO 1.03 (0.93-1.1)
[2020-07-16 06:40] LABS: ALANINE AMINOTRANSFERASE 49 U/L (12-78); ALBUMIN 3.2 g/dL (3.4-5.0); ALKALINE PHOSPHATASE 79 U/L (45-117); ANION GAP 9 mmol/L (5-15); BILIRUBIN,TOTAL 0.9 mg/dL (0.2-1.0); CALCIUM 8.5 mg/dL (8.5-10.1); CREATINE KINASE, TOTAL 246 U/L (39-308); CREATININE 0.98 mg/dL (0.7-1.3); TROPONIN I 0.031 ng/mL (0.000-0.045)
[2020-07-16 07:19] VITALS: BP 132/93
[2020-07-16] MEDS ORDERED: NITROGLYCERIN SINGLE TAB 0.4 MG SL PRN (07:30)
[2020-07-16] MEDS: THIAMINE 100MG TABLET PO SCH (08:37)
[2020-07-16] MEDS: FOLIC ACID 1 MG TABLET PO SCH (08:37)
[2020-07-16] MEDS: SPIRONOLACTONE 25 MG TABLET PO SCH (08:37)
[2020-07-16] MEDS: FUROSEMIDE 40 MG TABLET PO SCH (08:37)
[2020-07-16] MEDS: LISINOPRIL 10 MG TABLET PO SCH (08:37)
[2020-07-16] MEDS: ASPIRIN 81 MG TABLET EC PO SCH (08:37)
[2020-07-16] MEDS: GUAIFENESIN/DM 200-20MG, 10ML UDC PO PRN ×3 (08:49→23:46)
[2020-07-16] MEDS: CARVEDILOL 6.25 MG TABLET PO SCH ×2 (08:49→17:47)
[2020-07-16] MEDS: RIVAROXABAN 20 MG TABLET PO SCH (08:49)
[2020-07-16] MEDS: DOXYCYCLINE 100 MG in DEXTROSE 5% 250 ML IV SCH ×2 (11:21→20:15)
[2020-07-16 12:30] VITALS: BP 128/90
[2020-07-16] MEDS: CEFTRIAXONE PMX 2GM/50ML 50 ML IVPB SCH (18:14)
[2020-07-16 18:49] LABS: MICROSCOPIC AUTO
[2020-07-16 19:00] LABS: AMPHETAMINE SCREEN, URINE Positive (Negative); BARBITURATE SCREEN, URINE Negative (Negative)
[2020-07-16 19:01] LABS: BENZODIAZEPINE SCREEN, URINE Negative (Negative); CANNABINOID SCREEN, URINE Negative (Negative); COCAINE SCREEN, URINE Negative (Negative); METHADONE SCREEN, URINE Negative (Negative); OPIATE SCREEN, URINE Negative (Negative)
[2020-07-16 19:43] VITALS: BP 125/88
[2020-07-16] MEDS: NICOTINE 14MG/24 HR PATCH.TD24 TD SCH (20:19)
[2020-07-16] MEDS: MELATONIN 5 MG TABLET PO PRN (20:19)
[2020-07-17 00:27] VITALS: BP 119/84
[2020-07-17] MEDS: BENZONATATE 100 MG CAPSULE PO PRN ×2 (00:37→08:22)
[2020-07-17 05:33] LABS: BASOPHILS % (AUTO) 1 % (0-1); EOSINOPHILS % (AUTO) 3 % (1-7); LYMPHOCYTES % (AUTO) 30 % (22-44); MEAN CORPUSCULAR HEMOGLOBIN 32.2 pg (27.5-34.5); MEAN CORPUSCULAR HGB CONC 34.1 g/dL (33.2-36.2); MEAN PLATELET VOLUME 8.8 fL (7.4-10.4); MONOCYTES % (AUTO) 10 % (2-9); NEUTROPHILS % (AUTO) 57 % (42-75); PLATELET COUNT 241 x10^3/uL (130-400); RED BLOOD COUNT 4.99 x10^6/uL (4.38-5.82); RED CELL DISTRIBUTION WIDTH 15.5 % (9.4-14.8)
[2020-07-17 05:35] LABS: HCT (SEDRATE) 47.2 % (39.2-51.8)
[2020-07-17 05:41] LABS: CHLORIDE 109 mmol/L (98-107)
[2020-07-17 05:45] LABS: MD NO
[2020-07-17 05:59] LABS: ALANINE AMINOTRANSFERASE 42 U/L (12-78); ALBUMIN 3.1 g/dL (3.4-5.0); ALKALINE PHOSPHATASE 78 U/L (45-117); ANION GAP 7 mmol/L (5-15); BILIRUBIN,TOTAL 0.4 mg/dL (0.2-1.0); CALCIUM 8.5 mg/dL (8.5-10.1); CREATINE KINASE, TOTAL 202 U/L (39-308); CREATININE 1.09 mg/dL (0.7-1.3); TOTAL PROTEIN 7.1 g/dL (6.4-8.2)
[2020-07-17 06:06] VITALS: BP 120/82
[2020-07-17] MEDS: RIVAROXABAN 20 MG TABLET PO SCH (06:08)
[2020-07-17] MEDS: CARVEDILOL 6.25 MG TABLET PO SCH ×2 (06:08→17:34)
[2020-07-17 07:39] VITALS: BP 116/82
[2020-07-17] MEDS: DOXYCYCLINE 100 MG in DEXTROSE 5% 250 ML IV SCH (08:22)
[2020-07-17] MEDS: FOLIC ACID 1 MG TABLET PO SCH (08:22)
[2020-07-17] MEDS: LISINOPRIL 10 MG TABLET PO SCH (08:23)
[2020-07-17] MEDS: FUROSEMIDE 40 MG TABLET PO SCH (08:23)
[2020-07-17] MEDS: SPIRONOLACTONE 25 MG TABLET PO SCH (08:23)
[2020-07-17] MEDS: THIAMINE 100MG TABLET PO SCH (08:23)
[2020-07-17] MEDS: ASPIRIN 81 MG TABLET EC PO SCH (08:23)
[2020-07-17] MEDS: GUAIFENESIN/COD200MG-20MG/10ML LIQUID PO PRN ×4 (10:16→23:20)
[2020-07-17 15:38] VITALS: BP 118/81
[2020-07-17] MEDS: CEFTRIAXONE PMX 2GM/50ML 50 ML IVPB SCH (17:37)
[2020-07-17 19:21] VITALS: BP 106/71
[2020-07-17] MEDS: DOXYCYCLINE 100MG TABLET PO SCH (21:30)
[2020-07-17] MEDS: MELATONIN 5 MG TABLET PO PRN (21:31)
[2020-07-17] MEDS: NICOTINE 14MG/24 HR PATCH.TD24 TD SCH (21:31)
[2020-07-18 00:26] VITALS: BP 123/87
[2020-07-18] MEDS: GUAIFENESIN/COD200MG-20MG/10ML LIQUID PO PRN (03:20)
[2020-07-18 05:49] LABS: ALANINE AMINOTRANSFERASE 36 U/L (12-78); ANION GAP 8 mmol/L (5-15); CALCIUM 8.7 mg/dL (8.5-10.1); CHLORIDE 108 mmol/L (98-107)
[2020-07-18 05:51] LABS: D-DIMER 0.39 ug/mlFEU (0.00-0.52); INTERNATIONAL NORMALIZED RATIO 1.1 (0.93-1.1); PROTHROMBIN TIME 11.7 Seconds (9.6-11.5)
[2020-07-18 05:53] LABS: HCT (SEDRATE) 46.6 % (39.2-51.8)
[2020-07-18 05:56] LABS: BASOPHILS % (AUTO) 1 % (0-1); EOSINOPHILS % (AUTO) 3 % (1-7); LYMPHOCYTES % (AUTO) 25 % (22-44); MEAN CORPUSCULAR HEMOGLOBIN 31.9 pg (27.5-34.5); MEAN CORPUSCULAR HGB CONC 33.6 g/dL (33.2-36.2); MEAN PLATELET VOLUME 8.6 fL (7.4-10.4); MONOCYTES % (AUTO) 10 % (2-9); NEUTROPHILS % (AUTO) 61 % (42-75); PLATELET COUNT 276 x10^3/uL (130-400); RED BLOOD COUNT 4.92 x10^6/uL (4.38-5.82); RED CELL DISTRIBUTION WIDTH 15.6 % (9.4-14.8)
[2020-07-18 06:03] VITALS: BP 105/72
[2020-07-18 06:03] LABS: ALKALINE PHOSPHATASE 73 U/L (45-117); BILIRUBIN,TOTAL 0.4 mg/dL (0.2-1.0); CREATINE KINASE, TOTAL 148 U/L (39-308); CREATININE 1.07 mg/dL (0.7-1.3); TOTAL PROTEIN 6.9 g/dL (6.4-8.2)
[2020-07-18] MEDS: RIVAROXABAN 20 MG TABLET PO SCH (06:05)
[2020-07-18] MEDS: CARVEDILOL 6.25 MG TABLET PO SCH (06:05)
[2020-07-18 06:11] LABS: MD NO
[2020-07-18] MEDS: THIAMINE 100MG TABLET PO SCH (09:00)
[2020-07-18] MEDS: ASPIRIN 81 MG TABLET EC PO SCH (09:43)
[2020-07-18] MEDS: DOXYCYCLINE 100MG TABLET PO SCH (09:43)
[2020-07-18] MEDS: FUROSEMIDE 40 MG TABLET PO SCH (09:44)
[2020-07-18] MEDS: SPIRONOLACTONE 25 MG TABLET PO SCH (09:44)
[2020-07-18] MEDS: LISINOPRIL 10 MG TABLET PO SCH (09:44)
[2020-07-18] MEDS: FOLIC ACID 1 MG TABLET PO SCH (09:44)
[2020-07-18] MEDS ORDERED: DOXY100T PO (10:44)
[2020-07-18] MEDS ORDERED: BENZ-17 PO (10:44)
[2020-07-18] MEDS ORDERED: CEFD300C37 PO (10:44)
== END 2020-07-18 12:00 | disposition home or self-care (01) | DRG 720 ==
LOC: ED 18:26 → EDIP 19:24 → 3N 20:20 → 4WST 07-16 01:59 → DCLOUNGE 07-18 11:55
PROVIDERS: ADMIT Internal Medicine; ATTEND Family Medicine
DX: A41.9 Sepsis, unspecified organism (principal); E83.42 Hypomagnesemia; F10.10 Alcohol abuse, uncomplicated; F15.10 Other stimulant abuse, uncomplicated; F17.200 Nicotine dependence, unspecified, uncomplicated; I11.0 Hypertensive heart disease with heart failure; I34.0 Nonrheumatic mitral (valve) insufficiency; Z20.822 Contact with and (suspected) exposure to COVID-19; I42.8 Other cardiomyopathies; I50.23 Acute on chronic systolic (congestive) heart failure; I51.3 Intracardiac thrombosis, not elsewhere classified; J18.0 Bronchopneumonia, unspecified organism; I25.2 Old myocardial infarction; Z59.0 Homelessness; Z63.8 Other specified problems related to primary support group; Z79.01 Long term (current) use of anticoagulants; Z79.899 Other long term (current) drug therapy; Z91.14 Patient's other noncompliance with medication regimen; Z83.3 Family history of diabetes mellitus
CPT/HCPCS: 36415; 71045; 80053; 80307; 80320; 81001; 82550; 82728; 83605; 83615; 83735; 83880; 84100; 84145; 84484; 85025; 85379; 85384; 85610; 85651; 85730; 86140; 87040; 93005; 96365; 99285; G0378; J0696; J1644; J7060; G0480; J3475; J7030; U0003

== ENCOUNTER 2020-08-09 10:04 | Emergency (ER) | payer MEDICAID ==
[~2020-08-09] VITALS: Ht 172.7 cm; Wt 79.9 kg
[~2020-08-09 10:04] MED LIST changes: +CEFD300C37 PO; +DOXY100T PO
--- NOTE | 2020-08-09 10:44 | NUR ---
RADIO PRESENTER: PT TO ROOM FROM LUIS HANDLEY
[2020-08-09] MEDS ORDERED: ONDANSETRON 2MG/ML, 2ML IV ONE (11:30)
[2020-08-09] MEDS ORDERED: SODIUM CHLORIDE FLUSH 10ML SYR IVF ONE (11:30)
[2020-08-09 11:51] LABS: BASOPHILS % (AUTO) 1 % (0-1); EOSINOPHILS % (AUTO) 2 % (1-7); LYMPHOCYTES % (AUTO) 24 % (22-44); MD NO; MEAN CORPUSCULAR HEMOGLOBIN 32.6 pg (27.5-34.5); MEAN CORPUSCULAR HGB CONC 33.7 g/dL (33.2-36.2); MEAN PLATELET VOLUME 8.3 fL (7.4-10.4); MONOCYTES % (AUTO) 11 % (2-9); NEUTROPHILS % (AUTO) 62 % (42-75); PLATELET COUNT 228 x10^3/uL (130-400); RED BLOOD COUNT 4.99 x10^6/uL (4.38-5.82); RED CELL DISTRIBUTION WIDTH 15.3 % (9.4-14.8)
[2020-08-09] MEDS ORDERED: MORPHINE SULFATE 4 MG/ML, 1ML ONE ×2 (11:55→12:37)
[2020-08-09] MEDS ORDERED: ONDANSETRON 2MG/ML, 2ML ONE (11:55)
[2020-08-09] MEDS: MORPHINE SULFATE 4 MG/ML, 1ML IVPush PRN ×2 (11:57→12:56)
[2020-08-09 12:01] LABS: ALANINE AMINOTRANSFERASE 42 U/L (12-78); ALBUMIN 3.8 g/dL (3.4-5.0); CALCIUM 8.9 mg/dL (8.5-10.1); CHLORIDE 111 mmol/L (98-107); CREATININE 1.16 mg/dL (0.7-1.3)
[2020-08-09 12:05] LABS: ALKALINE PHOSPHATASE 73 U/L (45-117); BILIRUBIN,TOTAL 0.5 mg/dL (0.2-1.0); TOTAL PROTEIN 7.5 g/dL (6.4-8.2)
[2020-08-09 12:10] LABS: ANION GAP 5 mmol/L (5-15)
[2020-08-09] MEDS ORDERED: NITROGLYCERIN SINGLE TAB 0.4 MG SL PRN (12:30)
[2020-08-09] MEDS ORDERED: NITROGLYCERIN SINGLE TAB 0.4 MG SL ONE (12:31)
[2020-08-09] MEDS ORDERED: LORazepam 2 MG/ML, 1ML IV ONE (12:32)
--- NOTE | 2020-08-09 12:38 | NUR ---
MEDICATED FOR CONTINUED HTN WITH NITRO, URINE UDS COLLECTED
[2020-08-09 13:03] LABS: AMPHETAMINE SCREEN, URINE Negative (Negative); BARBITURATE SCREEN, URINE Negative (Negative); BENZODIAZEPINE SCREEN, URINE Negative (Negative); CANNABINOID SCREEN, URINE Negative (Negative); COCAINE SCREEN, URINE Negative (Negative); METHADONE SCREEN, URINE Negative (Negative); OPIATE SCREEN, URINE Positive (Negative)
--- NOTE | 2020-08-09 13:57 | NUR ---
BREAK RN: PT RESTING IN ROOM. FIELD MARKETING ASSOCIATE ON. SINUS TACH NOTED. VS STABLE. SPOKE WITH DR PARADA. PROVIDER WANTS PT TO HAVE NAOMYRELTO. PHARMACY SLIP SENT. CALL LIGHT IN PLACE. WILL CONTINUE TO MONITOR.
[2020-08-09] MEDS ORDERED: OMNIPAQUE 350 MG/ML, 75ML BOTTLE ONE (14:15)
--- NOTE | 2020-08-09 14:15 | NUR ---
TO CT SCAN
[2020-08-09 14:57] VITALS: BP 145/99
--- NOTE | 2020-08-09 16:05 | NUR ---
ERP ASKED ABOUT ABX FOR PNA. PATIENT ALREADY ON CEFDINIR AND DOXYCYCLINE PNA ALREADY KNOWN. TO CONTINUE THESE MEDS AT HOME
[2020-08-09] MEDS ORDERED: RIVAROXABAN 15 MG TABLET PO ONE (17:00)
== END 2020-08-09 16:15 | disposition home or self-care (01) ==
LOC: ED 11:04
DX: J15.9 Unspecified bacterial pneumonia (principal); K29.00 Acute gastritis without bleeding; R07.89 Other chest pain; R06.02 Shortness of breath; I11.0 Hypertensive heart disease with heart failure; I50.9 Heart failure, unspecified; I25.2 Old myocardial infarction; R00.0 Tachycardia, unspecified
CPT/HCPCS: 36415; 71045; 71275; 80053; 80307; 83605; 83690; 83880; 84484; 85025; 93005; 96374; 96375; 96376; 99285; J2270; J2405; Q9967

== ENCOUNTER 2020-08-17 14:50 | Emergency (ER) | payer MEDICAID ==
[~2020-08-17] VITALS: Ht 172.7 cm; Wt 79.4 kg
[2020-08-17 15:39] VITALS: BP 142/89
--- NOTE | 2020-08-17 15:43 | NUR ---
first contact with pt. pt c/o productive cough, neck pain, difficulty swallowing for a few days. pt denies sob/cp. pt's aox4. resps even and unlabored. pt stated "i had fever before" bp/spo2 monitors in place. call light within reach. pa at bedside for assessment at this time.
--- NOTE | 2020-08-17 15:45 | NUR ---
iso cart placed at this time d/t his symptoms.
--- NOTE | 2020-08-17 17:04 | NUR ---
Patient given discharge instructions and they have confirmed that they understand the instructions. Patient ambulatory with steady gait.
== END 2020-08-17 17:06 | disposition home or self-care (01) ==
LOC: ED 16:55
DX: R05 Cough (principal); I11.0 Hypertensive heart disease with heart failure; I50.9 Heart failure, unspecified; I25.2 Old myocardial infarction
CPT/HCPCS: 71045; 99283

== ENCOUNTER 2020-08-21 14:36 | Emergency (ER) | payer MEDICAID ==
[~2020-08-21] VITALS: Ht 172.7 cm; Wt 80.0 kg
--- NOTE | 2020-08-21 14:58 | NUR ---
BREAK RN: CONTACT WITH PT 35 YR OLD MALE HERE WITH C/O "I'M HAVING SEVERE ISSUES WITH MY BREATHING AND MY CHEST. MY COUGH HAS GOTTEN WORSE. IT GETS WORSE WHEN I'M IN PUBLIC. MY EYES, ARE REALLY BLOOD SHOT. I HAVE NEVER SEEN THEM LIKE THIS" PT UNABLE TO GIVE TIME FRAME OF WHEN COMPLAINTS BEGAN. PT PLACED ON MONITORS. ST PER MONITOR. AUTO BP AND PULSE OX IN PLACE. PT IN NO ACUTE DISTRSS. UPDATED ON POC. ELEMENTARY SUBSTITUTE TEACHER AT BEDSIDE TO DRAW LABS.
[2020-08-21 15:18] LABS: BASOPHILS % (AUTO) 1 % (0-1); EOSINOPHILS % (AUTO) 2 % (1-7); LYMPHOCYTES % (AUTO) 26 % (22-44); MEAN CORPUSCULAR HEMOGLOBIN 33.4 pg (27.5-34.5); MEAN CORPUSCULAR HGB CONC 34.3 g/dL (33.2-36.2); MONOCYTES % (AUTO) 10 % (2-9); NEUTROPHILS % (AUTO) 62 % (42-75); PLATELET COUNT 292 x10^3/uL (130-400); RED BLOOD COUNT 4.97 x10^6/uL (4.38-5.82); RED CELL DISTRIBUTION WIDTH 15.1 % (9.4-14.8)
[2020-08-21 15:19] LABS: MD NO
[2020-08-21 15:24] LABS: ALBUMIN 3.5 g/dL (3.4-5.0); ANION GAP 8 mmol/L (5-15); CALCIUM 9.1 mg/dL (8.5-10.1); CHLORIDE 109 mmol/L (98-107); CREATININE 1.14 mg/dL (0.7-1.3)
--- NOTE | 2020-08-21 15:36 | NUR ---
REPORT TO SARWAT GAO
[2020-08-21 17:09] VITALS: BP 111/70
--- NOTE | 2020-08-21 17:22 | NUR ---
PT REC'VD DISCHARGE INSTRUCTIONS AND EDUCATION. PT HAD NO FURTHER QUESTIONS. PT GIVEN SPACER FOR INHALER. PT AMBULATED TO UT AREA, STEADY GAIT.
== END 2020-08-21 17:31 | disposition home or self-care (01) ==
LOC: ED 15:21
DX: J06.9 Acute upper respiratory infection, unspecified (principal); H35.63 Retinal hemorrhage, bilateral; F12.10 Cannabis abuse, uncomplicated; F10.10 Alcohol abuse, uncomplicated; R06.02 Shortness of breath; R07.89 Other chest pain; R50.9 Fever, unspecified; R05 Cough; I11.0 Hypertensive heart disease with heart failure; I50.9 Heart failure, unspecified; I25.2 Old myocardial infarction; Z72.9 Problem related to lifestyle, unspecified; F17.210 Nicotine dependence, cigarettes, uncomplicated; Y90.0 Blood alcohol level of less than 20 mg/100 ml
CPT/HCPCS: 36415; 71045; 80048; 82040; 85025; 93005; 99285; 99406

== ENCOUNTER 2020-08-22 08:49 | Emergency (ER) | payer MEDICAID ==
[~2020-08-22] VITALS: Ht 172.7 cm; Wt 81.4 kg
--- NOTE | 2020-08-22 09:03 | NUR ---
PT AMBULATORY TO ROOM 9 W/ C/O REDNESS FROM BURSTED BLOOD VESSELS AND BLURRINESS TO BILAT EYES AFTER PT HAS BEEN COUGHING EXCESSIVELY. COUGHING STARTED 4-5 DAYS AGO. PT STATES HE WAS HERE YESTERDAY AND DX W/ BRONCHITIS. PT RESTING ON [employer]. NADN. MONITORS APPLIED. VSS.
[2020-08-22 09:08] VITALS: BP 118/83
[2020-08-22] MEDS ORDERED: DEXAMETHASONE 4 MG TABLET ONE (09:27)
[2020-08-22] MEDS ORDERED: DEXAMETHASONE 4 MG TABLET PO ONE (09:30)
== END 2020-08-22 10:23 | disposition home or self-care (01) ==
LOC: ED 09:15
DX: H11.33 Conjunctival hemorrhage, bilateral (principal); B34.9 Viral infection, unspecified; Z20.822 Contact with and (suspected) exposure to COVID-19; I11.0 Hypertensive heart disease with heart failure; I50.9 Heart failure, unspecified; I25.2 Old myocardial infarction
CPT/HCPCS: 99283; U0003

== ENCOUNTER 2020-08-23 02:21 | Emergency (ER) | payer MEDICAID ==
[~2020-08-23] VITALS: Ht 172.7 cm; Wt 80.0 kg
[2020-08-23] MEDS ORDERED: DEXAMETHASONE 4 MG TABLET ONE (02:46)
[2020-08-23] MEDS ORDERED: DEXAMETHASONE 4 MG TABLET PO ONE (03:00)
[2020-08-23] MEDS ORDERED: PROMETHAZINE/COD. 10MG/6.25MG/5 ML ORAL SOL PO ONE (03:00)
--- NOTE | 2020-08-23 03:08 | NUR ---
PT MEDICATED PER EMAR, PT HAS FREQUENT COUHING, NO OTHER NEEDS AT THIS TIME. AWAITING CXR RESULS
--- NOTE | 2020-08-23 03:18 | NUR ---
PT TACHY, ERP AWARE, PT ADMITS TO METH USE PRIOR TO COMING IN.
[2020-08-23 04:13] VITALS: BP 98/60
== END 2020-08-23 04:25 | disposition home or self-care (01) ==
LOC: ED 02:51
DX: J20.9 Acute bronchitis, unspecified (principal); G40.909 Epilepsy, unspecified, not intractable, without status epilepticus; I11.0 Hypertensive heart disease with heart failure; I50.9 Heart failure, unspecified; I25.2 Old myocardial infarction
CPT/HCPCS: 71045; 99283

== ENCOUNTER 2020-08-24 07:39 | Emergency (ER) | payer MEDICAID ==
[~2020-08-24] VITALS: Ht 172.7 cm; Wt 83.0 kg
[2020-08-24] MEDS ORDERED: ALBUTEROL SULFATE 2.5 MG/3 ML NPPB ONE (08:30)
--- NOTE | 2020-08-24 08:43 | NUR ---
Pt arrived to ER with complaints of "hemmorage" in bilat eyes. Eyes appear red, with broken blood vessles. Pt states that people "[place] funny in [place]". Also has complatints of a cough and hiccups. A&O x4, speaking in full sentences, GUCCI ARMSTRONG.
[2020-08-24] MEDS ORDERED: ALBUTEROL SULFATE 2.5 MG/3 ML ONE (08:56)
--- NOTE | 2020-08-24 09:49 | NUR ---
Pt reports breathing feels better after breathing treatment.
[2020-08-24 09:51] VITALS: BP 124/74
== END 2020-08-24 09:54 | disposition home or self-care (01) ==
LOC: ED 08:39
DX: B34.9 Viral infection, unspecified (principal); I11.0 Hypertensive heart disease with heart failure; I50.9 Heart failure, unspecified; I25.2 Old myocardial infarction; G40.909 Epilepsy, unspecified, not intractable, without status epilepticus
CPT/HCPCS: 94640; 99283; J7613

== ENCOUNTER 2020-08-24 19:12 | Emergency (ER) | payer MEDICAID ==
[~2020-08-24] VITALS: Ht 172.7 cm; Wt 84.5 kg
--- NOTE | 2020-08-24 19:33 | NUR ---
PATIENT ARRIVES WITH A COUGH THAT HE HAS BEEN SEEN X3 FOR IT. HE GOT INHALERS, AND WAS TOLD THAT IT IS BRONCHITIS. HE IS NOT C19 VACCINATED, WAS TOLD THAT HE WAS TESTED FOR IT BUT NOT SURE RESULTS - THIS WAS THREE DAYS AGO. TACHY 120
[2020-08-24] MEDS ORDERED: PROMETHAZINE/COD. 10MG/6.25MG/5 ML ORAL SOL PO ONE (19:34)
--- NOTE | 2020-08-24 19:40 | NUR ---
PATIENT ADDS HE HAS CHF AND IS OFF ALL CARDIAC MEDS BECAUSE THEY ARE SINGLE REFILLS AND HE RAN OUT.
--- NOTE | 2020-08-24 19:51 | NUR ---
requested med from pharm
--- NOTE | 2020-08-24 21:00 | NUR ---
states throat feels somewhat better, patient still coughing.
[2020-08-24] MEDS ORDERED: ASPIRIN 81 MG TABLET CHEW ONE (21:11)
[2020-08-24 21:21] LABS: BASOPHILS % (AUTO) 1 % (0-1); EOSINOPHILS % (AUTO) 0 % (1-7); LYMPHOCYTES % (AUTO) 18 % (22-44); MEAN CORPUSCULAR HGB CONC 33.7 g/dL (33.2-36.2); MEAN PLATELET VOLUME 8.1 fL (7.4-10.4); MONOCYTES % (AUTO) 8 % (2-9); NEUTROPHILS % (AUTO) 73 % (42-75); PLATELET COUNT 297 x10^3/uL (130-400); RED BLOOD COUNT 4.41 x10^6/uL (4.38-5.82); RED CELL DISTRIBUTION WIDTH 15.4 % (9.4-14.8)
[2020-08-24 21:24] LABS: MD NO
[2020-08-24 21:30] LABS: ANION GAP 4 mmol/L (5-15); CALCIUM 8.2 mg/dL (8.5-10.1); CHLORIDE 110 mmol/L (98-107); CREATININE 1.01 mg/dL (0.7-1.3)
[2020-08-24] MEDS ORDERED: ASPIRIN 81 MG TABLET CHEW PO ONE (21:30)
[2020-08-24 21:34] LABS: TROPONIN I 0.071 ng/mL (0.000-0.045)
[2020-08-24 22:04] VITALS: BP 133/98
--- NOTE | 2020-08-24 22:07 | NUR ---
got patient food, bus pass. has appropriate clothing. discharge reviewed
--- NOTE | 2020-08-24 22:32 | NUR ---
got cab voucher
== END 2020-08-24 22:34 | disposition home or self-care (01) ==
LOC: ED 19:52
DX: R05 Cough (principal); I11.0 Hypertensive heart disease with heart failure; I50.9 Heart failure, unspecified; I25.2 Old myocardial infarction; F17.200 Nicotine dependence, unspecified, uncomplicated
CPT/HCPCS: 36415; 71046; 80048; 82040; 83880; 84484; 85025; 93005; 99285

== ENCOUNTER 2020-08-26 15:23 | Inpatient (IN) | payer MEDICAID ==
[~2020-08-26] VITALS: Ht 172.7 cm; Wt 82.8 kg
--- NOTE | 2020-08-26 15:54 | NUR ---
ASSUMED CARE OF PATIENT. PATIENT REPORTS HE HAS A COUGH AND BILATERAL RIB PAIN. TELEPHONE COIN BOX COLLECTOR ON. EKG DONE. DR CALLEJAS HAS SEEN EKG. VS STABLE. CALL LIGHT IN PLACE. WILL CONTINUE TO MONITOR.
--- NOTE | 2020-08-26 15:55 | NUR ---
PT REPORTS HE HAS CHF AND HAS NOT BEEN TAKING HIS MEDICATIONS. PT IS NOT SURE OF THE MEDICATIONS HE IS SUPPOSED TO BE ON. DR CALLEJAS AWARE.
[2020-08-26 16:24] LABS: BASOPHILS % (AUTO) 1 % (0-1); EOSINOPHILS % (AUTO) 1 % (1-7); LYMPHOCYTES % (AUTO) 20 % (22-44); MEAN CORPUSCULAR HEMOGLOBIN 32.7 pg (27.5-34.5); MEAN CORPUSCULAR HGB CONC 33.3 g/dL (33.2-36.2); MEAN PLATELET VOLUME 8.1 fL (7.4-10.4); MONOCYTES % (AUTO) 8 % (2-9); NEUTROPHILS % (AUTO) 70 % (42-75); PLATELET COUNT 312 x10^3/uL (130-400); RED BLOOD COUNT 4.56 x10^6/uL (4.38-5.82); RED CELL DISTRIBUTION WIDTH 14.7 % (9.4-14.8)
[2020-08-26 16:25] LABS: MD NO
[2020-08-26 16:26] LABS: ALBUMIN 3.1 g/dL (3.4-5.0); ANION GAP 6 mmol/L (5-15); CALCIUM 8.3 mg/dL (8.5-10.1); CHLORIDE 109 mmol/L (98-107); CREATININE 1.02 mg/dL (0.7-1.3)
[2020-08-26 16:30] LABS: TROPONIN I 0.026 ng/mL (0.000-0.045)
--- NOTE | 2020-08-26 16:43 | NUR ---
PT IN CT
[2020-08-26] MEDS ORDERED: OMNIPAQUE 350 MG/ML, 75ML BOTTLE ONE (16:51)
--- NOTE | 2020-08-26 17:20 | NUR ---
LAB IN ROOM DOING BLOOD CULTURES
[2020-08-26] MEDS ORDERED: DOXYCYCLINE 100 MG in DEXTROSE 5% 250 ML IV SCH (17:30)
[2020-08-26] MEDS ORDERED: CEFTRIAXONE 1,000 MG in DEXTROSE 5% 50 ML IVPB ONE (17:30)
--- NOTE | 2020-08-26 17:31 | NUR ---
BOTH BLOOD CULTURES DRAWN BEFORE ABX GIVEN
--- NOTE | 2020-08-26 17:38 | NUR ---
DR CALLEJAS OKAY WITH PATIENT EATING. CARDIAC DIET ORDERED PE DR CALLEJAS. VS STABLE. NO ACUTE DISTRESS NOTED. CALL LIGHT IN PLACE. WILL CONTINUE TO MONITOR.
[2020-08-26] MEDS ORDERED: GUAIFENESIN/DM 200-20MG, 10ML UDC PO PRN (18:30)
[2020-08-26] MEDS ORDERED: ACETAMINOPHEN 325 MG TABLET PO PRN (18:30)
[2020-08-26] MEDS ORDERED: BISACODYL 10 MG SUPP PR PRN (18:30)
[2020-08-26] MEDS ORDERED: ONDANSETRON ODT 4 MG PO PRN (18:30)
[2020-08-26] MEDS ORDERED: POLYETHYLENE GLYCOL 17 GM PACKET PO PRN (18:30)
--- NOTE | 2020-08-26 18:41 | NUR ---
REPORT CALLED INTO MURRAY VENTURA. PRIMARY RN AWARE THAT DOXYCYCLIN NEEDS TO BE GIVEN. PT'S ROCEPHIN FINISHING BECAUSE PT WAS MOVING AROUND AND IV WAS NOT FLOWING.
--- NOTE | 2020-08-26 18:57 | NUR ---
REPORT RECEIVED FROM MYRA GAO
[2020-08-26 19:42] VITALS: BP 135/96
[2020-08-26] MEDS: SODIUM CHLORIDE FLUSH 10ML SYR IVF SCH (21:00)
[2020-08-26] MEDS: HEPARIN 5,000 UNITS/ML, 1ML SQ SCH (21:54)
[2020-08-27 00:30] VITALS: BP 133/94
[2020-08-27] MEDS: GUAIFENESIN/COD200MG-20MG/10ML LIQUID PO PRN ×3 (03:04→22:06)
[2020-08-27] MEDS ORDERED: ASPI81TA45 PO (04:12)
[2020-08-27] MEDS ORDERED: CARV6.25 PO (04:18)
[2020-08-27] MEDS ORDERED: NITR0.4T28 SL (04:18)
[2020-08-27] MEDS ORDERED: BENZ-17 PO (04:18)
[2020-08-27] MEDS ORDERED: LISI10TA19 PO (04:18)
[2020-08-27] MEDS ORDERED: FURO40TA6 PO (04:18)
[2020-08-27] MEDS ORDERED: SPIR25TA5 PO (04:18)
[2020-08-27] MEDS ORDERED: RIVA20TA PO (04:18)
[2020-08-27 05:25] LABS: BASOPHILS % (AUTO) 1 % (0-1); EOSINOPHILS % (AUTO) 2 % (1-7); LYMPHOCYTES % (AUTO) 20 % (22-44); MD NO; MEAN CORPUSCULAR HEMOGLOBIN 32.7 pg (27.5-34.5); MEAN CORPUSCULAR HGB CONC 33.6 g/dL (33.2-36.2); MEAN PLATELET VOLUME 8.4 fL (7.4-10.4); MONOCYTES % (AUTO) 8 % (2-9); NEUTROPHILS % (AUTO) 70 % (42-75); PLATELET COUNT 309 x10^3/uL (130-400); RED BLOOD COUNT 4.51 x10^6/uL (4.38-5.82); RED CELL DISTRIBUTION WIDTH 14.8 % (9.4-14.8)
[2020-08-27 05:37] LABS: ANION GAP 6 mmol/L (5-15); CALCIUM 8.4 mg/dL (8.5-10.1); CHLORIDE 109 mmol/L (98-107); CREATININE 0.86 mg/dL (0.7-1.3)
[2020-08-27] MEDS: HEPARIN 5,000 UNITS/ML, 1ML SQ SCH ×2 (05:52→15:20)
[2020-08-27] MEDS: DOXYCYCLINE 100 MG in DEXTROSE 5% 250 ML IV SCH ×2 (07:55→19:05)
[2020-08-27 08:11] VITALS: BP 134/89
[2020-08-27] MEDS: SENNA/DOCUSATE TABLET PO SCH (08:44)
[2020-08-27] MEDS: SODIUM CHLORIDE FLUSH 10ML SYR IVF SCH ×2 (08:44→21:04)
[2020-08-27 13:27] VITALS: BP 133/96
[2020-08-27 13:43] LABS: AMPHETAMINE SCREEN, URINE Positive (Negative); BARBITURATE SCREEN, URINE Negative (Negative); BENZODIAZEPINE SCREEN, URINE Negative (Negative); CANNABINOID SCREEN, URINE Negative (Negative); COCAINE SCREEN, URINE Negative (Negative); METHADONE SCREEN, URINE Negative (Negative); OPIATE SCREEN, URINE Positive (Negative)
[2020-08-27] MEDS ORDERED: HEPARIN 5,000 UNITS/ML, 1ML SQ SCH (17:00)
[2020-08-27] MEDS ORDERED: CEFTRIAXONE 1,000 MG in DEXTROSE 5% 50 ML IVPB SCH (17:30)
[2020-08-27 19:16] VITALS: BP 128/87
[2020-08-27] MEDS: BENZONATATE 100 MG CAPSULE PO SCH (21:01)
[2020-08-27] MEDS: CARVEDILOL 6.25 MG TABLET PO SCH (21:01)
[2020-08-27] MEDS ORDERED: MELATONIN 5 MG TABLET PO PRN (23:30)
[2020-08-28 01:14] VITALS: BP 141/101
[2020-08-28 01:16] VITALS: BP 135/101
[2020-08-28] MEDS ORDERED: RIVAROXABAN 20 MG TABLET PO SCH (07:00)
[2020-08-28 07:27] VITALS: BP 141/99
[2020-08-28] MEDS: DOXYCYCLINE 100 MG in DEXTROSE 5% 250 ML IV SCH (07:44)
[2020-08-28] MEDS: SENNA/DOCUSATE TABLET PO SCH (08:34)
[2020-08-28] MEDS: BENZONATATE 100 MG CAPSULE PO SCH (08:34)
[2020-08-28] MEDS: SODIUM CHLORIDE FLUSH 10ML SYR IVF SCH (08:35)
[2020-08-28] MEDS: CARVEDILOL 6.25 MG TABLET PO SCH (08:35)
[2020-08-28] MEDS ORDERED: SPIRONOLACTONE 25 MG TABLET PO SCH (09:00)
[2020-08-28] MEDS ORDERED: ASPIRIN 81 MG TABLET EC PO SCH (09:00)
[2020-08-28] MEDS ORDERED: FUROSEMIDE 40 MG TABLET PO SCH (09:00)
[2020-08-28] MEDS ORDERED: LISINOPRIL 10 MG TABLET PO SCH (09:00)
[2020-08-28] MEDS ORDERED: DOXY100T PO (09:38)
[2020-08-28] MEDS ORDERED: CEFD300C37 PO (09:38)
== END 2020-08-28 12:39 | disposition left against medical advice (07) | DRG 139 ==
LOC: ED 17:10 → EDIP 17:30 → 4WST 19:27
PROVIDERS: ADMIT Internal Medicine; ATTEND Family Medicine
DX: J18.9 Pneumonia, unspecified organism (principal); I42.8 Other cardiomyopathies; I50.9 Heart failure, unspecified; I11.0 Hypertensive heart disease with heart failure; H11.30 Conjunctival hemorrhage, unspecified eye; F43.10 Post-traumatic stress disorder, unspecified; F15.129 Other stimulant abuse with intoxication, unspecified; F17.210 Nicotine dependence, cigarettes, uncomplicated; G40.909 Epilepsy, unspecified, not intractable, without status epilepticus; F12.90 Cannabis use, unspecified, uncomplicated; D75.89 Other specified diseases of blood and blood-forming organs; I25.2 Old myocardial infarction; Z59.0 Homelessness; Z82.49 Family history of ischemic heart disease and other diseases of the circulatory system; Z83.3 Family history of diabetes mellitus; Z91.14 Patient's other noncompliance with medication regimen; Z91.19 Patient's noncompliance with other medical treatment and regimen
CPT/HCPCS: 36415; 71275; 80048; 80307; 82040; 82607; 83605; 83880; 84145; 84484; 85025; 87040; 87806; 93005; G0378; J0696; J1644; J7060; Q9967; G0475

== ENCOUNTER 2020-09-07 03:45 | Emergency (ER) | payer MEDICAID ==
[~2020-09-07] VITALS: Ht 172.7 cm; Wt 77.9 kg
[~2020-09-07 03:45] MED LIST changes: +CARV6.25 PO; +LISI10TA19 PO; +SPIR25TA5 PO
--- NOTE | 2020-09-07 03:49 | NUR ---
INITIAL PT CONTACT. PT BIBA C/O RIGHT SIDED CHEST PAIN, PRESENT X1 DAY. WORSE WITH MOVEMENT AND PALPATION. PT SITTING UPRIGHT ON GUCCI DIAZ, VSS. PT PLACED ON CONTINUOUS PULSE OX AND CARDIAC MONITORING. CALL LIGHT AND PERSONAL BELONGINGS WITHIN REACH. AWAITING ERP
[2020-09-07 04:13] LABS: BASOPHILS % (AUTO) 1 % (0-1); EOSINOPHILS % (AUTO) 2 % (1-7); LYMPHOCYTES % (AUTO) 21 % (22-44); MEAN CORPUSCULAR HEMOGLOBIN 32.8 pg (27.5-34.5); MEAN CORPUSCULAR HGB CONC 33.2 g/dL (33.2-36.2); MEAN PLATELET VOLUME 7.6 fL (7.4-10.4); MONOCYTES % (AUTO) 13 % (2-9); NEUTROPHILS % (AUTO) 64 % (42-75); PLATELET COUNT 313 x10^3/uL (130-400); RED CELL DISTRIBUTION WIDTH 14.6 % (9.4-14.8)
[2020-09-07 04:16] LABS: MD NO
[2020-09-07] MEDS ORDERED: LORazepam 1MG TABLET ONE (04:17)
[2020-09-07] MEDS ORDERED: IBUPROFEN 600 MG TABLET ONE (04:17)
[2020-09-07 04:23] LABS: ALBUMIN 3.5 g/dL (3.4-5.0); ANION GAP 7 mmol/L (5-15); CALCIUM 8.7 mg/dL (8.5-10.1); CHLORIDE 109 mmol/L (98-107)
[2020-09-07 04:28] LABS: ALANINE AMINOTRANSFERASE 35 U/L (12-78); ALKALINE PHOSPHATASE 75 U/L (45-117); BILIRUBIN,TOTAL 0.5 mg/dL (0.2-1.0); CREATININE 1.04 mg/dL (0.7-1.3); TOTAL PROTEIN 7.4 g/dL (6.4-8.2); TROPONIN I 0.016 ng/mL (0.000-0.045)
[2020-09-07] MEDS ORDERED: LORazepam 1MG TABLET PO ONE (04:30)
[2020-09-07] MEDS ORDERED: IBUPROFEN 600 MG TABLET PO ONE (04:30)
[2020-09-07 04:36] VITALS: BP 137/100
--- NOTE | 2020-09-07 04:45 | NUR ---
REPORT TO RADHA GAO
--- NOTE | 2020-09-07 05:05 | NUR ---
PT REC'VD DISCHARGE INSTRUCTIONS AND EDUCATION. PT HAD NO FURTHER QUESTIONS. PT GIVEN TAXI VOUCHER. PT AMBULATED TO NE AREA, STEADY GAIT.
== END 2020-09-07 05:08 | disposition home or self-care (01) ==
LOC: ED 05:02
DX: R07.89 Other chest pain (principal); I11.0 Hypertensive heart disease with heart failure; I50.9 Heart failure, unspecified; I25.2 Old myocardial infarction; I42.9 Cardiomyopathy, unspecified
CPT/HCPCS: 36415; 71045; 80053; 80320; 84484; 85025; 93005; 99285; G0480